=== PATIENT | female | born 1970 | race Caucasian/White ===

== ENCOUNTER 2019-08-22 11:05 | Observation (INO) | payer MEDICAID ==
[2019-08-22] MEDS ORDERED: Sodium Chloride 0.9% 1,000 ML IV ONE (11:16)
[2019-08-22] MEDS ORDERED: Ondansetron 4 MG/2 ML SDV IVPUSH ONE (11:21)
--- NOTE | 2019-08-22 11:23 | EDM.PDOC ---
ED HPI GENERAL MEDICAL PROBLEM - General Chief Complaint: Abdominal Pain Stated Complaint: ABDOMINAL PAIN,VOMITTING Time Seen by Provider: 08/22/19 11:15 - History of Present Illness INITIAL COMMENTS - FREE TEXT/NARRATIVE: HISTORY AND PHYSICAL: History of present illness: Patient is a 49-year-old white female with history of pancreatitis who presents with concern of acute abdominal pain she states she's had flareups like this over the years and the etiology of her pancreatitis remains unclear she has had prior cholecystectomy she states she does drink nightly but this is restricted to one drink at all, was not thought to be one of the contributing factors for her pancreatitis. She denies fever chills chest pain or shortness of breath Review of systems: As per history of present illness and below otherwise all systems reviewed and negative. Past medical history: As per history of present illness and as reviewed below otherwise noncontributory. Surgical history: As per history of present illness and as reviewed below otherwise noncontributory. Social history: No reported history of drug or alcohol abuse. Family history: As per history of present illness and as reviewed below otherwise noncontributory. Physical exam: HEENT: Atraumatic, normocephalic, pupils reactive, negative for conjunctival pallor or scleral icterus, mucous membranes moist, throat clear, neck supple, nontender, trachea midline. Lungs: Clear to auscultation, breath sounds equal bilaterally, chest nontender. Heart: S1S2, regular, negative for clicks, rubs, or JVD. Abdomen: Soft, nondistended, tenderness across upper abdomen. Negative for masses or hepatosplenomegaly. Negative for costovertebral tenderness. Pelvis: Stable nontender. Genitourinary: Deferred. Rectal: Deferred. Extremities: Atraumatic, negative for cords or calf pain. Neurovascular unremarkable. Neuro: Awake, alert, oriented. Cranial nerves II through XII unremarkable. Cerebellum unremarkable. Motor and sensory unremarkable throughout. Exam nonfocal. Diagnostics: CBC CMP lipase EKG chest x-ray CT abdomen and pelvis UA urine drug screen PT/INR Therapeutics: Saline 1 L bolus Zofran 4 mg IV Impression: On acute abdominal pain #2 history of pancreatitis Definitive disposition and diagnosis as appropriate pending reevaluation and review of above. - Related Data Allergies Allergy/AdvReac Type Severity Reaction Status Date / Time acetaminophen Allergy Anaphylactic Verified 08/22/19 11:25 [From Darvocet-N] Shock azithromycin Allergy Anaphylactic Verified 08/22/19 11:25 Shock meperidine [From Demerol] Allergy Hives Verified 08/22/19 11:25 metoclopramide [From Reglan] Allergy Anaphylactic Verified 08/22/19 11:25 Shock morphine Allergy Anaphylactic Verified 08/22/19 11:25 Shock NSAIDS (Non-Steroidal Allergy Stomach Verified 08/22/19 11:25 Anti-Inflamma Upset ondansetron [From Zofran] Allergy Anaphylactic Verified 08/22/19 11:25 Shock prochlorperazine Allergy Anaphylactic Verified 08/22/19 11:25 [From Compazine] Shock propoxyphene Allergy Anaphylactic Verified 08/22/19 11:25 [From Darvocet-N] Shock Home Meds: Home Meds Multivitamin [Multi-Day Vitamins] 08/22/19 [History] Omeprazole 08/22/19 [History] Zinc Gluconate-Zinc Picolinate [Zinc] 08/22/19 [History] ED ROS GENERAL - Review of Systems Review Of Systems: Comprehensive ROS is negative, except as noted in HPI. ED EXAM, GENERAL - Physical Exam Exam: See Below (See dictation) Course - Vital Signs Last Recorded V/S: Last Vital Signs Temp 36.3 C 08/22/19 11:26 Pulse 84 08/22/19 11:26 Resp 18 08/22/19 11:26 BP 151/78 H 08/22/19 11:26 Pulse Ox 100 08/22/19 11:26 - Orders/Labs/Meds Orders: Active Orders 24 hr Category Date Time Status EKG Documentation Completion [RC] STAT Care 08/22/19 11:16 Active Labs: Laboratory Tests 08/22/19 08/22/19 08/22/19 Range/Units 11:35 11:35 11:35 WBC 5.82 (4.0-11.0) K/uL RBC 4.54 (4.30-5.90) M/uL Hgb 13.6 (12.0-16.0) g/dL Hct 40.9 (36.0-46.0) % MCV 90.1 (80.0-98.0) fL MCH 30.0 (27.0-32.0) pg MCHC 33.3 (31.0-37.0) g/dL RDW Std Deviation 43.6 (28.0-62.0) fl RDW Coeff of Brenda 13 (11.0-15.0) % Plt Count 276 (150-400) K/uL MPV 9.20 (7.40-12.00) fL Neut % (Auto) 61.6 (48.0-80.0) % Lymph % (Auto) 29.9 (16.0-40.0) % [place] % (Auto) 7.7 (0.0-15.0) % Eos % (Auto) 0.5 (0.0-7.0) % Baso % (Auto) 0.3 (0.0-1.5) % Neut # (Auto) 3.6 (1.4-5.7) K/uL Lymph # (Auto) 1.7 (0.6-2.4) K/uL [place] # (Auto) 0.5 (0.0-0.8) K/uL Eos # (Auto) 0.0 (0.0-0.7) K/uL Baso # (Auto) 0.0 (0.0-0.1) K/uL Nucleated RBC % 0.0 /100WBC Nucleated RBCs # 0 K/uL INR 0.97 Sodium (136-145) mmol/L Potassium (3.5-5.1) mmol/L Chloride (98-107) mmol/L Carbon Dioxide (21.0-32.0) mmol/L BUN (7.0-18.0) mg/dL Creatinine (0.6-1.0) mg/dL Est Cr Clr Drug Dosing Estimated GFR (MDRD) ml/min Glucose (74-106) mg/dL Calcium (8.5-10.1) mg/dL Total Bilirubin (0.2-1.0) mg/dL AST (15-37) IU/L ALT (14-63) IU/L Alkaline Phosphatase (46-116) U/L Total Protein (6.4-8.2) g/dL Albumin (3.4-5.0) g/dL Globulin (2.6-4.0) g/dL Albumin/Globulin Ratio (0.9-1.6) Lipase (73-393) U/L HCG, Qual (NEG) Urine Color YELLOW Urine Appearance CLEAR Urine pH 6.0 (5.0-8.0) Ur Specific [place] 1.020 (1.001-1.035) Urine Protein NEGATIVE (NEGATIVE) mg/dL Urine Glucose (UA) NEGATIVE (NEGATIVE) mg/dL Urine Ketones NEGATIVE (NEGATIVE) mg/dL Urine Occult Blood TRACE-INTACT H (NEGATIVE) Urine Nitrite NEGATIVE (NEGATIVE) Urine Bilirubin NEGATIVE (NEGATIVE) Urine Urobilinogen 0.2 (<2.0) EU/dL Ur Leukocyte Esterase NEGATIVE (NEGATIVE) Urine RBC 0-2 (0-2/HPF) Urine WBC 0-1 (0-5/HPF) Ur Squamous Epith Cells NOT SEEN Urine Bacteria NOT SEEN (NEGATIVE) Urine Opiates Screen (NEGATIVE) Ur Oxycodone Screen (NEGATIVE) Urine Methadone Screen (NEGATIVE) Ur Barbiturates Screen (NEGATIVE) Ur Phencyclidine Scrn (NEGATIVE) Ur Amphetamine Screen (NEGATIVE) U Methamphetamines Scrn (NEGATIVE) U Benzodiazepines Scrn (NEGATIVE) U Cocaine Metab Screen (NEGATIVE) U Marijuana (THC) Screen (NEGATIVE) Ethyl Alcohol mg/dL 08/22/19 08/22/19 08/22/19 Range/Units 11:35 11:35 11:35 WBC (4.0-11.0) K/uL RBC (4.30-5.90) M/uL Hgb (12.0-16.0) g/dL Hct (36.0-46.0) % MCV (80.0-98.0) fL MCH (27.0-32.0) pg MCHC (31.0-37.0) g/dL RDW Std Deviation (28.0-62.0) fl RDW Coeff of Brenda (11.0-15.0) % Plt Count (150-400) K/uL MPV (7.40-12.00) fL Neut % (Auto) (48.0-80.0) % Lymph % (Auto) (16.0-40.0) % [place] % (Auto) (0.0-15.0) % Eos % (Auto) (0.0-7.0) % Baso % (Auto) (0.0-1.5) % Neut # (Auto) (1.4-5.7) K/uL Lymph # (Auto) (0.6-2.4) K/uL [place] # (Auto) (0.0-0.8) K/uL Eos # (Auto) (0.0-0.7) K/uL Baso # (Auto) (0.0-0.1) K/uL Nucleated RBC % /100WBC Nucleated RBCs # K/uL INR Sodium 139 (136-145) mmol/L Potassium 4.3 (3.5-5.1) mmol/L Chloride 105 (98-107) mmol/L Carbon Dioxide 24.5 (21.0-32.0) mmol/L BUN 16 (7.0-18.0) mg/dL Creatinine 0.8 (0.6-1.0) mg/dL Est Cr Clr Drug Dosing TNP Estimated GFR (MDRD) > 60.0 ml/min Glucose 96 (74-106) mg/dL Calcium 8.9 (8.5-10.1) mg/dL Total Bilirubin 0.4 (0.2-1.0) mg/dL AST 20 (15-37) IU/L ALT 27 (14-63) IU/L Alkaline Phosphatase 79 (46-116) U/L Total Protein 7.8 (6.4-8.2) g/dL Albumin 4.1 (3.4-5.0) g/dL Globulin 3.7 (2.6-4.0) g/dL Albumin/Globulin Ratio 1.1 (0.9-1.6) Lipase 205 (73-393) U/L HCG, Qual NEGATIVE (NEG) Urine Color Urine Appearance Urine pH (5.0-8.0) Ur Specific [place] (1.001-1.035) Urine Protein (NEGATIVE) mg/dL Urine Glucose (UA) (NEGATIVE) mg/dL Urine Ketones (NEGATIVE) mg/dL Urine Occult Blood (NEGATIVE) Urine Nitrite (NEGATIVE) Urine Bilirubin (NEGATIVE) Urine Urobilinogen (<2.0) EU/dL Ur Leukocyte Esterase (NEGATIVE) Urine RBC (0-2/HPF) Urine WBC (0-5/HPF) Ur Squamous Epith Cells Urine Bacteria (NEGATIVE) Urine Opiates Screen NEGATIVE (NEGATIVE) Ur Oxycodone Screen NEGATIVE (NEGATIVE) Urine Methadone Screen NEGATIVE (NEGATIVE) Ur Barbiturates Screen NEGATIVE (NEGATIVE) Ur Phencyclidine Scrn NEGATIVE (NEGATIVE) Ur Amphetamine Screen NEGATIVE (NEGATIVE) U Methamphetamines Scrn NEGATIVE (NEGATIVE) U Benzodiazepines Scrn NEGATIVE (NEGATIVE) U Cocaine Metab Screen NEGATIVE (NEGATIVE) U Marijuana (THC) Screen POSITIVE (NEGATIVE) Ethyl Alcohol <3 mg/dL Meds: Medications Discontinued Medications Generic Name Dose Route Start Last Admin Trade Name Claudioq PRN Reason Stop Dose Admin Sodium Chloride 1,000 mls @ 999 mls/hr 08/22/19 11:16 08/22/19 11:53 Normal Saline IV 08/22/19 12:16 999 mls/hr STAT ONE Administration Ondansetron HCl 4 mg 08/22/19 11:21 08/22/19 12:26 Zofran IVPUSH 08/22/19 11:22 Not Given ONETIME ONE Promethazine HCl 25 mg 08/22/19 11:55 08/22/19 12:27 Phenergan IM 08/22/19 11:56 25 mg ONETIME ONE Administration Departure - Departure Time of Disposition: 13:43 Disposition: Refer to Observation Condition: Good Clinical Impression: Abdominal pain - Discharge Information Referrals: PCP,None [Primary Care Provider] - Forms: ED Department Discharge - My Orders Last 24 Hours: My Active Orders 08/22/19 11:16 EKG Documentation Completion [RC] STAT - Assessment/Plan Last 24 Hours: My Active Orders 08/22/19 11:16 EKG Documentation Completion [RC] STAT
[2019-08-22] MEDS ORDERED: Promethazine 25 MG/ML SDV IM ONE (11:55)
[2019-08-22 12:10] LABS: BLOOD UREA NITROGEN,BUN 16 mg/dL (7.0-18.0); CARBON DIOXIDE,CO2 24.5 mmol/L (21.0-32.0); CHLORIDE,CL 105 mmol/L (98-107); GLUCOSE RANDOM 96 mg/dL (74-106); LIPASE 205 U/L (73-393); POTASSIUM,K 4.3 mmol/L (3.5-5.1); SODIUM,NA 139 mmol/L (136-145)
--- NOTE | 2019-08-22 12:46 | CT ---
INDICATION: Abdominal pain. TECHNIQUE: Noncontrast CT scan of the abdomen and pelvis. FINDINGS: The lung bases are unremarkable. No focal abnormalities identified in the visualized portions of the liver, spleen, pancreas, adrenal glands, and kidneys. No hydronephrosis. No uroliths. The GI tract is incompletely distended but shows no gross abnormalities. The stomach and GE junction are not well assessed. No retroperitoneal, pelvic sidewall, or mesenteric adenopathy. Atherosclerotic vascular calcifications. Stabilization hardware in the lower lumbar spine. Osteopenia. IMPRESSION: 1. No acute abnormalities of the abdomen or pelvis identified. Dictated by David Varela MD @ 08/22/2019 12:44:51 PM Please note that all CT scans at this facility use dose modulation, iterative reconstruction, and/or weight-based dosing when appropriate to reduce radiation dose to as low as reasonably achievable. Dictated by: David Varela MD @ 08/22/2019 12:45:01 (Electronically Signed)
--- NOTE | 2019-08-22 12:51 | CR ---
INDICATION: Vomiting, abdominal pain, cough. TECHNIQUE: Chest 1 view. COMPARISON: None FINDINGS: The heart size and central vascular pattern are within the normal range. The lungs are clear of acute appearing infiltrates. No pleural effusion is evident. Mild biapical pleural thickening is present. IMPRESSION: No acute cardiopulmonary disease is evident. Dictated by Alen Nieves MD @ Aug 22 2019 12:46PM Signed by Dr. Alen Nieves @ Aug 22 2019 12:48PM
--- NOTE | 2019-08-22 15:03 | PCM.HP.2 ---
H&P History of Present Illness - General Date of Service: 08/22/19 Admit Problem/Dx: Admission Diagnosis/Problem Admission Diagnosis/Problem Abdominal pain Source of Information: Patient - History of Present Illness Initial Comments - Free Text/Narative: Patient is a 49-year-old white female with reported history of pancreatitis who presents with concern of acute abdominal pain she statesshe often has these flare up and etiology of her pancreatitis remains unclear. Patient has h/o of cholecystectomy she states she does drink nightly. She denies fever chills chest pain or shortness of breath. Drinks 1 drink daily. Work up in the ER was negative including negative CT abdomen and normal Lab work. Patient was still experiencing abdominal pain so was admitted for further evaluation. . Onset of Symptoms: Reports: Today, Sudden Duration of Symptoms: Reports: Hour(s): Quality: Reports: Pressure Improves with: Reports: None Worsens with: Reports: None abd Pain Score (Numeric/FACES): 8 - Related Data Allergies/Adverse Reactions: Allergies Allergy/AdvReac Type Severity Reaction Status Date / Time azithromycin Allergy Vomiting Verified 08/22/19 16:08 haloperidol Allergy Anaphylactic Verified 08/22/19 16:12 Shock meperidine [From Demerol] Allergy headaches Verified 08/22/19 16:08 metoclopramide [From Reglan] Allergy Anaphylactic Verified 08/22/19 16:09 Shock morphine Allergy Hives Verified 08/22/19 16:09 NSAIDS (Non-Steroidal Allergy Stomach Verified 08/22/19 16:09 Anti-Inflamma Upset ondansetron [From Zofran] Allergy Hives Verified 08/22/19 16:09 phenazopyridine Allergy Vomiting Verified 08/22/19 16:12 [From Pyridium] prochlorperazine Allergy Anaphylactic Verified 08/22/19 16:09 [From Compazine] Shock propoxyphene Allergy Swelling Verified 08/22/19 16:10 [From Darvocet-N] Home Medications: Home Meds Multivitamin [Multi-Day Vitamins] 1 tab PO DAILY 08/22/19 [History] Omeprazole 20 mg PO DAILY 08/22/19 [History] Zinc Gluconate-Zinc Picolinate [Zinc] 1 tab PO DAILY 08/22/19 [History] H&P Review of Systems - Review of Systems: General: Denies: Fever, Chills Pulmonary: Denies: Shortness of Breath, Wheezing Cardiovascular: Denies: Chest Pain, Palpitations Gastrointestinal: Reports: Abdominal Pain, Anorexia, Decreased Appetite. Denies : Black Stool, Bloody Stool, Constipation, Diarrhea, Distension, Hematemesis, Hematochezia, Stool Incontinence Genitourinary: Denies: Dysuria, Frequency Musculoskeletal: Denies: Neck Pain, Shoulder Pain Skin: Denies: Cyanosis, Jaundice, Mottled Psychiatric: Denies: Confusion, Depression, Mood Lability Neurological: Denies: Confusion, Dizziness, Headache Hematologic/Lymphatic: Denies: Anemia, Easy Bleeding Exam - Exam Exam: See Below - Vital Signs Vital Signs: Last Vital Signs Temp 36.3 C 08/22/19 11:26 Pulse 72 08/22/19 13:30 Resp 18 08/22/19 13:30 BP 135/76 08/22/19 13:30 Pulse Ox 98 08/22/19 13:30 - Exam General: Alert, Oriented Neck: Supple Lungs: Clear to Auscultation Cardiovascular: Regular Rate, Regular Rhythm GI/Abdominal Exam: Normal Bowel Sounds, Soft, Non-Tender Extremities: Normal Inspection, Normal Range of Motion Peripheral Pulses: 3+: Dorsalis Pedis (L), Dorsalis Pedis (R) - Patient Data Lab Results Last 24 hrs: Laboratory Results - last 24 hr 08/22/19 08/22/19 08/22/19 Range/Units 11:35 11:35 11:35 WBC 5.82 (4.0-11.0) K/uL RBC 4.54 (4.30-5.90) M/uL Hgb 13.6 (12.0-16.0) g/dL Hct 40.9 (36.0-46.0) % MCV 90.1 (80.0-98.0) fL MCH 30.0 (27.0-32.0) pg MCHC 33.3 (31.0-37.0) g/dL RDW Std Deviation 43.6 (28.0-62.0) fl RDW Coeff of Brenda 13 (11.0-15.0) % Plt Count 276 (150-400) K/uL MPV 9.20 (7.40-12.00) fL Neut % (Auto) 61.6 (48.0-80.0) % Lymph % (Auto) 29.9 (16.0-40.0) % [place] % (Auto) 7.7 (0.0-15.0) % Eos % (Auto) 0.5 (0.0-7.0) % Baso % (Auto) 0.3 (0.0-1.5) % Neut # (Auto) 3.6 (1.4-5.7) K/uL Lymph # (Auto) 1.7 (0.6-2.4) K/uL [place] # (Auto) 0.5 (0.0-0.8) K/uL Eos # (Auto) 0.0 (0.0-0.7) K/uL Baso # (Auto) 0.0 (0.0-0.1) K/uL Nucleated RBC % 0.0 /100WBC Nucleated RBCs # 0 K/uL INR 0.97 Sodium (136-145) mmol/L Potassium (3.5-5.1) mmol/L Chloride (98-107) mmol/L Carbon Dioxide (21.0-32.0) mmol/L BUN (7.0-18.0) mg/dL Creatinine (0.6-1.0) mg/dL Est Cr Clr Drug Dosing Estimated GFR (MDRD) ml/min Glucose (74-106) mg/dL Calcium (8.5-10.1) mg/dL Total Bilirubin (0.2-1.0) mg/dL AST (15-37) IU/L ALT (14-63) IU/L Alkaline Phosphatase (46-116) U/L Total Protein (6.4-8.2) g/dL Albumin (3.4-5.0) g/dL Globulin (2.6-4.0) g/dL Albumin/Globulin Ratio (0.9-1.6) Lipase (73-393) U/L HCG, Qual (NEG) Urine Color YELLOW Urine Appearance CLEAR Urine pH 6.0 (5.0-8.0) Ur Specific [place] 1.020 (1.001-1.035) Urine Protein NEGATIVE (NEGATIVE) mg/dL Urine Glucose (UA) NEGATIVE (NEGATIVE) mg/dL Urine Ketones NEGATIVE (NEGATIVE) mg/dL Urine Occult Blood TRACE-INTACT H (NEGATIVE) Urine Nitrite NEGATIVE (NEGATIVE) Urine Bilirubin NEGATIVE (NEGATIVE) Urine Urobilinogen 0.2 (<2.0) EU/dL Ur Leukocyte Esterase NEGATIVE (NEGATIVE) Urine RBC 0-2 (0-2/HPF) Urine WBC 0-1 (0-5/HPF) Ur Squamous Epith Cells NOT SEEN Urine Bacteria NOT SEEN (NEGATIVE) Urine Opiates Screen (NEGATIVE) Ur Oxycodone Screen (NEGATIVE) Urine Methadone Screen (NEGATIVE) Ur Barbiturates Screen (NEGATIVE) Ur Phencyclidine Scrn (NEGATIVE) Ur Amphetamine Screen (NEGATIVE) U Methamphetamines Scrn (NEGATIVE) U Benzodiazepines Scrn (NEGATIVE) U Cocaine Metab Screen (NEGATIVE) U Marijuana (THC) Screen (NEGATIVE) Ethyl Alcohol mg/dL 08/22/19 08/22/19 08/22/19 Range/Units 11:35 11:35 11:35 WBC (4.0-11.0) K/uL RBC (4.30-5.90) M/uL Hgb (12.0-16.0) g/dL Hct (36.0-46.0) % MCV (80.0-98.0) fL MCH (27.0-32.0) pg MCHC (31.0-37.0) g/dL RDW Std Deviation (28.0-62.0) fl RDW Coeff of Brenda (11.0-15.0) % Plt Count (150-400) K/uL MPV (7.40-12.00) fL Neut % (Auto) (48.0-80.0) % Lymph % (Auto) (16.0-40.0) % [place] % (Auto) (0.0-15.0) % Eos % (Auto) (0.0-7.0) % Baso % (Auto) (0.0-1.5) % Neut # (Auto) (1.4-5.7) K/uL Lymph # (Auto) (0.6-2.4) K/uL [place] # (Auto) (0.0-0.8) K/uL Eos # (Auto) (0.0-0.7) K/uL Baso # (Auto) (0.0-0.1) K/uL Nucleated RBC % /100WBC Nucleated RBCs # K/uL INR Sodium 139 (136-145) mmol/L Potassium 4.3 (3.5-5.1) mmol/L Chloride 105 (98-107) mmol/L Carbon Dioxide 24.5 (21.0-32.0) mmol/L BUN 16 (7.0-18.0) mg/dL Creatinine 0.8 (0.6-1.0) mg/dL Est Cr Clr Drug Dosing TNP Estimated GFR (MDRD) > 60.0 ml/min Glucose 96 (74-106) mg/dL Calcium 8.9 (8.5-10.1) mg/dL Total Bilirubin 0.4 (0.2-1.0) mg/dL AST 20 (15-37) IU/L ALT 27 (14-63) IU/L Alkaline Phosphatase 79 (46-116) U/L Total Protein 7.8 (6.4-8.2) g/dL Albumin 4.1 (3.4-5.0) g/dL Globulin 3.7 (2.6-4.0) g/dL Albumin/Globulin Ratio 1.1 (0.9-1.6) Lipase 205 (73-393) U/L HCG, Qual NEGATIVE (NEG) Urine Color Urine Appearance Urine pH (5.0-8.0) Ur Specific [place] (1.001-1.035) Urine Protein (NEGATIVE) mg/dL Urine Glucose (UA) (NEGATIVE) mg/dL Urine Ketones (NEGATIVE) mg/dL Urine Occult Blood (NEGATIVE) Urine Nitrite (NEGATIVE) Urine Bilirubin (NEGATIVE) Urine Urobilinogen (<2.0) EU/dL Ur Leukocyte Esterase (NEGATIVE) Urine RBC (0-2/HPF) Urine WBC (0-5/HPF) Ur Squamous Epith Cells Urine Bacteria (NEGATIVE) Urine Opiates Screen NEGATIVE (NEGATIVE) Ur Oxycodone Screen NEGATIVE (NEGATIVE) Urine Methadone Screen NEGATIVE (NEGATIVE) Ur Barbiturates Screen NEGATIVE (NEGATIVE) Ur Phencyclidine Scrn NEGATIVE (NEGATIVE) Ur Amphetamine Screen NEGATIVE (NEGATIVE) U Methamphetamines Scrn NEGATIVE (NEGATIVE) U Benzodiazepines Scrn NEGATIVE (NEGATIVE) U Cocaine Metab Screen NEGATIVE (NEGATIVE) U Marijuana (THC) Screen POSITIVE (NEGATIVE) Ethyl Alcohol <3 mg/dL Result Diagrams: 08/22/19 11:35 08/22/19 11:35 - Problem List (1) Abdominal pain SNOMED Code(s): 15053380 ICD Code: R10.9 - UNSPECIFIED ABDOMINAL PAIN Status: Acute Current Visit : Yes Problem List Initiated/Reviewed/Updated: Yes Orders Last 24hrs: Active Orders 24 hr Category Date Time Status Patient Status [ADT] Stat ADT 08/22/19 13:49 Active EKG Documentation Completion [RC] STAT Care 08/22/19 11:16 Active Assessment/Plan Comment:: 49 y/o F came in with abdominal pain, Work up done in ER was negative including Negative CT scan abdomen, normal labs Patient states she would like to stay overnight as she is still experiencing abdominal pain Could be Gastritis Will keep NPO start IVF Tylenol for pain Avoid Opioids IV PPI Maalox as needed
[2019-08-22] MEDS ORDERED: Ketorolac 30 MG/ML SDV IV PRN (15:27)
[2019-08-22] MEDS ORDERED: Pantoprazole 40 MG Vial IV SCH (15:30)
[2019-08-22] MEDS ORDERED: Aluminum Hydroxide/Magnesium Hydroxide/Simethicone Susp 30 ML Cup PO PRN (15:30)
[2019-08-22] MEDS ORDERED: Pantoprazole 40 MG in Sodium Chloride 0.9% 10 ML IV SCH (15:45)
[2019-08-22] MEDS: Heparin Sodium 5,000 Units/ML Vial SUBCUT SCH ×2 (16:24→23:16)
[2019-08-22] MEDS: Pantoprazole 40 MG in Sodium Chloride 0.9% 10 ML IV SCH ×2 (16:24→18:42)
[2019-08-22] MEDS ORDERED: FLU Vacc QS2019-20(6MOS+)/PF 60 MCG/0.5 ML SYRINGE IM ONE (18:30)
[2019-08-22] MEDS: Acetaminophen 325 MG/10.15 ML ML PO PRN (18:49)
[2019-08-22] MEDS: Sodium Chloride 0.9% 1,000 ML IV SCH (19:27)
[2019-08-22] MEDS: Promethazine 25 MG/ML SDV IM PRN ×2 (19:32→19:36)
[2019-08-22] MEDS ORDERED: HYDROmorphone 1 MG/ML Syringe IVPUSH ONE (23:01)
[2019-08-23] MEDS: Sodium Chloride 0.9% 1,000 ML IV SCH (03:02)
[2019-08-23] MEDS: Acetaminophen 325 MG/10.15 ML ML PO PRN ×2 (03:18→08:54)
[2019-08-23] MEDS: Promethazine 25 MG/ML SDV IM PRN ×2 (03:22→08:58)
[2019-08-23 06:31] LABS: BLOOD UREA NITROGEN,BUN 20 mg/dL (7.0-18.0); CARBON DIOXIDE,CO2 23.1 mmol/L (21.0-32.0); CHLORIDE,CL 111 mmol/L (98-107); GLUCOSE RANDOM 90 mg/dL (74-106); POTASSIUM,K 4.1 mmol/L (3.5-5.1); SODIUM,NA 144 mmol/L (136-145)
[2019-08-23] MEDS: Heparin Sodium 5,000 Units/ML Vial SUBCUT SCH (06:50)
[2019-08-23] MEDS: Pantoprazole 40 MG in Sodium Chloride 0.9% 10 ML IV SCH (08:42)
[2019-08-23] MEDS ORDERED: HYDROmorphone 2 MG Tab PO ONE (10:51)
--- NOTE | 2019-08-23 13:26 | PCM.DCSUM1 ---
<Cesar Munson - Last Filed: 08/23/19 13:22> Discharge Summary - Hospital Course Free Text/Narrative:: 49-year-old female admitted for abdominal pain. She has a PMH of pancreatitis and alcohol abuse. She reports history abdominal pain secondary to pancreatitis and has been experiencing flare-up in pain on and off for the past few years. CT abdomen was negative. CXR, CBC, CMP and lipase level were all unremarkable. Patient was made NPO, started on IV fluids, IV PPI and given PO Dilaudid for pain. Patient was discharged in stable condition and advised to follow-up with new vehicle sales consultant and establish care with PCP. She was discharged on a short- term course of Dilaudid 1 mg TID prn pain for 3 days. - Discharge Data Discharge Date: 08/23/19 Discharge Disposition: Home, Self-Care 01 Condition: Stable - Referral to Home Health Primary Care Physician: PCP None - Patient Instructions Diet: Usual Diet as Tolerated Activity: As Tolerated Notify Provider of: Fever, Increased Pain, Swelling and Redness, Drainage, Nausea and/or Vomiting - Discharge Plan *PRESCRIPTION DRUG MONITORING PROGRAM REVIEWED*: Not Applicable *COPY OF PRESCRIPTION DRUG MONITORING REPORT IN PATIENT DAVON: Not Applicable Prescriptions/Med Rec: HYDROmorphone [Dilaudid] 1 mg PO Q8H PRN 3 Days #5 tab PRN Reason: Pain Home Medications: Home Meds Multivitamin [Multi-Day Vitamins] 1 tab PO DAILY 08/22/19 [History] Omeprazole 20 mg PO DAILY 08/22/19 [History] Zinc Gluconate-Zinc Picolinate [Zinc] 1 tab PO DAILY 08/22/19 [History] HYDROmorphone [Dilaudid] 1 mg PO Q8H PRN 3 Days #5 tab 08/23/19 [Rx] Patient Handouts: Abdominal Pain, Adult, [id number], Hydromorphone tablets Referrals: [facility] [Outside] Nohemi Mcbride MD [Ordering Only Provider] - 09/07/19 2:40 pm Cesar Munson MD [Resident] - 08/31/19 2:00 pm - Discharge Summary/Plan Comment DC Time >30 min.: No - Patient Data Vitals - Most Recent: Last Vital Signs Temp 97.3 F 08/23/19 07:10 Pulse 68 08/23/19 07:10 Resp 16 08/23/19 07:10 BP 95/46 L 08/23/19 07:10 Pulse Ox 100 08/23/19 07:10 Weight - Most Recent: 74.4 kg I&O - Last 24 hours: Intake & Output 08/22/19 08/23/19 08/23/19 22:59 06:59 14:59 Intake Total 1175 Output Total 700 Balance 475 Lab Results - Last 24 hrs: Laboratory Results - last 24 hr 08/23/19 Range/Units 05:40 Sodium 144 (136-145) mmol/L Potassium 4.1 (3.5-5.1) mmol/L Chloride 111 H (98-107) mmol/L Carbon Dioxide 23.1 (21.0-32.0) mmol/L BUN 20 H (7.0-18.0) mg/dL Creatinine 0.8 (0.6-1.0) mg/dL Est Cr Clr Drug Dosing 87.70 mL/min Estimated GFR (MDRD) > 60.0 ml/min Glucose 90 (74-106) mg/dL Calcium 8.1 L (8.5-10.1) mg/dL Total Bilirubin 0.3 (0.2-1.0) mg/dL AST 20 (15-37) IU/L ALT 22 (14-63) IU/L Alkaline Phosphatase 60 (46-116) U/L Total Protein 6.0 L (6.4-8.2) g/dL Albumin 3.1 L (3.4-5.0) g/dL Globulin 2.9 (2.6-4.0) g/dL Albumin/Globulin Ratio 1.1 (0.9-1.6) Med Orders - Current: Current Medications Acetaminophen (Tylenol) 400 mg PO Q4H PRN PRN Reason: Abdominal Pain Last Admin: 08/23/19 08:54 Dose: 400 mg Al Hydroxide/Mg Hydroxide (Mag-Al Plus) 30 ml PO Q4H PRN PRN Reason: Heartburn Last Admin: 08/22/19 16:24 Dose: 30 ml Heparin Sodium (Porcine) (Heparin Sodium) 5,000 units SUBCUT Q8H IZZY Last Admin: 08/23/19 06:50 Dose: 5,000 units Pantoprazole Sodium 40 mg/ (Sodium Chloride) 10 mls @ 300 mls/hr IV DAILY [facility] Last Admin: 08/23/19 08:42 Dose: 300 mls/hr Sodium Chloride (Normal Saline) 1,000 mls @ 125 mls/hr IV ASDIRECTED [facility] Last Admin: 08/23/19 03:02 Dose: 125 mls/hr Promethazine HCl (Phenergan) 25 mg IM Q6H PRN PRN Reason: nausea/vomiting Last Admin: 08/23/19 08:58 Dose: 25 mg Discontinued Medications Hydromorphone HCl (Dilaudid) 0.5 mg IVPUSH ONETIME ONE Stop: 08/22/19 23:02 Last Admin: 08/22/19 23:17 Dose: 0.5 mg Hydromorphone HCl (Dilaudid) 2 mg PO ONETIME ONE Stop: 08/23/19 10:52 Last Admin: 08/23/19 11:06 Dose: 2 mg Sodium Chloride (Normal Saline) 1,000 mls @ 999 mls/hr IV STAT ONE Stop: 08/22/19 12:16 Last Admin: 08/22/19 11:53 Dose: 999 mls/hr Pantoprazole Sodium 40 mg/ (Sodium Chloride) 10 mls @ 300 mls/hr IV Q24H IZZY Pantoprazole Sodium 40 mg/ (Sodium Chloride) 10 mls @ 300 mls/hr IV DAILY [facility] Influenza Virus Vaccine (Pharmacy To Dose - Influenza Vaccine) 1 each IM ONETIME ONE Stop: 08/22/19 18:13 Influenza Virus Vaccine (Fluzone Quad 4436-0060 Syringe) 60 mcg IM .ONCE ONE Stop: 08/22/19 18:31 Last Admin: 08/23/19 12:10 Dose: 60 mcg Ketorolac Tromethamine (Toradol) 30 mg IV Q6H PRN PRN Reason: Pain (moderate 4-6) Ondansetron HCl (Zofran) 4 mg IVPUSH ONETIME ONE Stop: 08/22/19 11:22 Last Admin: 08/22/19 12:26 Dose: Not Given Pantoprazole Sodium (Protonix Iv) 40 mg IV DAILY [facility] Last Admin: 08/22/19 17:03 Dose: Not Given Promethazine HCl (Phenergan) 25 mg IM ONETIME ONE Stop: 08/22/19 11:56 Last Admin: 08/22/19 12:27 Dose: 25 mg <Rory Andrews - Last Filed: 08/24/19 11:54> Discharge Summary - Hospital Course HPI Initial Comments: I have seen and evaluated the patient and agree with the residents note unless specified in my note - Referral to Home Health Primary Care Physician: PCP None - Discharge Diagnosis/Problem(s) (1) Abdominal pain SNOMED Code(s): 07116790 ICD Code: R10.9 - UNSPECIFIED ABDOMINAL PAIN Status: Acute - Patient Data Vitals - Most Recent: Last Vital Signs Temp 36.8 C 08/23/19 11:00 Pulse 68 08/23/19 11:00 Resp 16 08/23/19 11:00 BP 110/56 L 08/23/19 11:00 Pulse Ox 98 08/23/19 11:00 Med Orders - Current: Current Medications Discontinued Medications Acetaminophen (Tylenol) 400 mg PO Q4H PRN PRN Reason: Abdominal Pain Last Admin: 08/23/19 08:54 Dose: 400 mg Al Hydroxide/Mg Hydroxide (Mag-Al Plus) 30 ml PO Q4H PRN PRN Reason: Heartburn Last Admin: 08/22/19 16:24 Dose: 30 ml Heparin Sodium (Porcine) (Heparin Sodium) 5,000 units SUBCUT Q8H IZZY Last Admin: 08/23/19 06:50 Dose: 5,000 units Hydromorphone HCl (Dilaudid) 0.5 mg IVPUSH ONETIME ONE Stop: 08/22/19 23:02 Last Admin: 08/22/19 23:17 Dose: 0.5 mg Hydromorphone HCl (Dilaudid) 2 mg PO ONETIME ONE Stop: 08/23/19 10:52 Last Admin: 08/23/19 11:06 Dose: 2 mg Sodium Chloride (Normal Saline) 1,000 mls @ 999 mls/hr IV STAT ONE Stop: 08/22/19 12:16 Last Admin: 08/22/19 11:53 Dose: 999 mls/hr Pantoprazole Sodium 40 mg/ (Sodium Chloride) 10 mls @ 300 mls/hr IV Q24H IZZY Pantoprazole Sodium 40 mg/ (Sodium Chloride) 10 mls @ 300 mls/hr IV DAILY IZZY Pantoprazole Sodium 40 mg/ (Sodium Chloride) 10 mls @ 300 mls/hr IV DAILY [facility] Last Admin: 08/23/19 08:42 Dose: 300 mls/hr Sodium Chloride (Normal Saline) 1,000 mls @ 125 mls/hr IV ASDIRECTED [facility] Last Admin: 08/23/19 03:02 Dose: 125 mls/hr Influenza Virus Vaccine (Pharmacy To Dose - Influenza Vaccine) 1 each IM ONETIME ONE Stop: 08/22/19 18:13 Influenza Virus Vaccine (Fluzone Quad Syringe) 60 mcg IM .ONCE ONE Stop: 08/22/19 18:31 Last Admin: 08/23/19 12:10 Dose: 60 mcg Ketorolac Tromethamine (Toradol) 30 mg IV Q6H PRN PRN Reason: Pain (moderate 4-6) Ondansetron HCl (Zofran) 4 mg IVPUSH ONETIME ONE Stop: 08/22/19 11:22 Last Admin: 08/22/19 12:26 Dose: Not Given Pantoprazole Sodium (Protonix Iv) 40 mg IV DAILY [facility] Last Admin: 08/22/19 17:03 Dose: Not Given Promethazine HCl (Phenergan) 25 mg IM ONETIME ONE Stop: 08/22/19 11:56 Last Admin: 08/22/19 12:27 Dose: 25 mg Promethazine HCl (Phenergan) 25 mg IM Q6H PRN PRN Reason: nausea/vomiting Last Admin: 08/23/19 08:58 Dose: 25 mg
[2019-08-23] MEDS ORDERED: Pantoprazole 40 MG in Sodium Chloride 0.9% 10 ML IV SCH (15:45)
== END 2019-08-23 13:25 | disposition home or self-care (01) ==
LOC: MW.ED 11:05 → MW.MS 14:12
PROVIDERS: ADMIT Student in an Organized Health Care Education/Training Program; ATTEND Student in an Organized Health Care Education/Training Program
DX: R10.9 Unspecified abdominal pain (principal); Z88.1 Allergy status to other antibiotic agents; Z88.8 Allergy status to other drugs, medicaments and biological substances; Z88.5 Allergy status to narcotic agent; Z88.6 Allergy status to analgesic agent; Z79.899 Other long term (current) drug therapy; Z87.19 Personal history of other diseases of the digestive system; Z23 Encounter for immunization
CPT/HCPCS: 36415; 71045; 74176; 80053; 80305; 80320; 81001; 83690; 84703; 85025; 85610; 90471; 90686; 93005; 96360; 96372; 99285; A9270; C9113; J1170; J1644; J2550; J7040; J7050; 96361; 96374; 96375; 96376; G0008; G0378; G0480; J7030

== ENCOUNTER 2019-09-08 18:36 | Emergency (ER) | payer SELFPAY ==
[2019-09-08] MEDS ORDERED: Sodium Chloride 0.9% 1,000 ML IV ONE (18:39)
[2019-09-08] MEDS ORDERED: LORazepam 2 MG/ML SDV IVPUSH ONE (18:57)
--- NOTE | 2019-09-08 19:13 | EDM.PDOC ---
ED HPI GENERAL MEDICAL PROBLEM - General Chief Complaint: Abdominal Pain Stated Complaint: VOMITING Time Seen by Provider: 09/08/19 18:51 Source of Information: Reports: Patient History Limitations: Reports: No Limitations - History of Present Illness INITIAL COMMENTS - FREE TEXT/NARRATIVE: HISTORY AND PHYSICAL: History of present illness: Patient is a 49-year-old female who presents to the emergency room with complaints of right upper quadrant pain, nausea and vomiting. Patient states this pain started approximately 3 weeks ago and she was seen in our emergency room on 08/22/2019 and was admitted overnight for pain control. She was informed that finding showed that she had dilatation of the common bile duct but otherwise no answers for her continued pain. She states she did follow-up with a GI specialist at [facility], Dr Mcbride, who has her scheduled for an upper endoscopy, colonoscopy, CT abdomen and pelvis with and without contrast for 09/17/2019. She states she called her primary care provider as she has ran out of her Phenergan with codeine and Gideon. Patient denies any fever, chills, headache, change in vision, syncope or near syncope. Denies any chest pain, back pain, shortness of breath or cough. Denies any diarrhea, constipation or dysuria. Has not noted any blood in urine or stool. Patient has been eating and drinking appropriately. Review of systems: As per history of present illness and below otherwise all systems reviewed and negative. Past medical history: As per history of present illness and as reviewed below otherwise noncontributory. Surgical history: As per history of present illness and as reviewed below otherwise noncontributory. Social history: See social history for further information Family history: As per history of present illness and as reviewed below otherwise noncontributory. Physical exam: General: Well-developed and well-nourished 49-year-old female. Alert and oriented. Nontoxic-appearing and in no acute distress. HEENT: Atraumatic, normocephalic, pupils equal and reactive bilaterally, negative for conjunctival pallor or scleral icterus, mucous membranes moist, neck supple, nontender, trachea midline. No drooling or trismus noted. No meningeal signs. No hot potato voice noted. Lungs: Clear to auscultation, breath sounds equal bilaterally, chest nontender. Heart: S1S2, regular rate and rhythm without overt murmur Abdomen: Soft, nondistended, RUQ tenderness. Negative for masses or hepatosplenomegaly. Negative for costovertebral tenderness. Pelvis: Stable nontender. Skin: Intact, warm, dry. No lesions or rashes noted. Extremities: Atraumatic, moves all extremities per self without difficulty or deficits, negative for cords or calf pain. Neurovascular unremarkable. Neuro: Awake, alert, oriented. Cranial nerves II through XII unremarkable. Cerebellum unremarkable. Motor and sensory unremarkable throughout. Exam nonfocal. Notes: Patient mentions that she is out of her pain medication if she would have had this medication she would not have come to the emergency room. She does mention that she would like imaging done even though she has this scheduled with her specialist on the of this month. As the patient's lab work is normal I am not going to do any imaging at this time. She does have multiple allergies. There is some contradiction in which she states she is allergic to some medications yet she has taken these at home for pain and nausea management. All diagnostics were shared with the patient. Supportive care measures were reviewed and discussed. Voices understanding and is agreeable to plan of care. Denies any further questions or concerns at this time. Diagnostics: CBC, CMP, UA Therapeutics: IV fluid, Ativan Prescription: Phenergan (#6) Tramadol (#15) Impression: Encounter for medication refill Abdominal pain Plan: 1. Please follow-up with Dr. Mcbride, your GI specialist, as you already have arranged. Please contact him sooner if needed. 2. Further medication refills have to be through your primary care provider. 3. Return to the ED as needed and as discussed. Definitive disposition and diagnosis as appropriate pending reevaluation and review of above. RUQ Pain Score (Numeric/FACES): 7 - Related Data Allergies Allergy/AdvReac Type Severity Reaction Status Date / Time azithromycin Allergy Vomiting Verified 09/08/19 18:46 haloperidol Allergy Anaphylactic Verified 1819 18:46 Shock meperidine [From Demerol] Allergy headaches Verified 1819 18:46 metoclopramide [From Reglan] Allergy Anaphylactic Verified 1819 18:46 Shock morphine Allergy Hives Verified 1819 18:46 NSAIDS (Non-Steroidal Allergy Stomach Verified 1819 18:46 Anti-Inflamma Upset ondansetron [From Zofran] Allergy Hives Verified 09/08/19 18:46 phenazopyridine Allergy Vomiting Verified 09/08/19 18:46 [From Pyridium] prochlorperazine Allergy Anaphylactic Verified 09/08/19 18:46 [From Compazine] Shock propoxyphene Allergy Swelling Verified 09/08/19 18:46 [From Darvocet-N] Home Meds: Home Meds Multivitamin [Multi-Day Vitamins] 1 tab PO DAILY 08/22/19 [History] Omeprazole 20 mg PO DAILY 08/22/19 [History] Zinc Gluconate-Zinc Picolinate [Zinc] 1 tab PO DAILY 08/22/19 [History] Past Medical History HEENT History: Reports: Impaired Vision Cardiovascular History: Reports: None Respiratory History: Reports: Other (See Below) 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 Gastrointestinal History: Reports: Pancreatitis Genitourinary History: Reports: None BOILER WASHER History: Reports: Other (See Below) Other BOILER WASHER History: Pt states, "I had my tubes tied and then had them untied" Musculoskeletal History: Reports: None Neurological History: Reports: Concussion, TIA Psychiatric History: Reports: Anxiety, Depression Endocrine/Metabolic History: Reports: None Hematologic History: Reports: None Immunologic History: Reports: None Oncologic (Cancer) History: Reports: None Dermatologic History: Reports: None - Infectious Disease History Infectious Disease History: Reports: Chicken Pox - Past Surgical History Head Surgeries/Procedures: Reports: None HEENT Surgical History: Reports: None Cardiovascular Surgical History: Reports: None Respiratory Surgical History: Reports: None GI Surgical History: Reports: Appendectomy, Cholecystectomy Female Surgical History: Reports: None Endocrine Surgical History: Reports: None Neurological Surgical History: Reports: None Musculoskeletal Surgical History: Reports: Other (See Below) Other Musculoskeletal Surgeries/Procedures:: Back surgery for herniated discs Oncologic Surgical History: Reports: None Dermatological Surgical History: Reports: None Social & Family History - Family History Family Medical History: Noncontributory - Tobacco Use Smoking Status *Q: Current Every Day Smoker Years of Tobacco use: 33 Packs/Tins Daily: 0.4 - Caffeine Use Caffeine Use: Reports: Coffee, Soda - Recreational Drug Use Recreational Drug Use: No ED ROS GENERAL - Review of Systems Review Of Systems: Comprehensive ROS is negative, except as noted in HPI. ED EXAM, GI/ABD - Physical Exam Exam: See Below (See dictation) Course - Vital Signs Last Recorded V/S: Last Vital Signs Temp 97.7 F 09/08/19 18:47 Pulse 90 09/08/19 18:47 Resp 18 09/08/19 18:47 BP 158/82 H 09/08/19 18:47 Pulse Ox 98 09/08/19 18:47 - Orders/Labs/Meds Labs: Laboratory Tests 09/08/19 09/08/19 09/08/19 Range/Units 18:50 18:50 19:50 WBC 5.98 (4.0-11.0) K/uL RBC 4.25 L (4.30-5.90) M/uL Hgb 12.9 (12.0-16.0) g/dL Hct 38.4 (36.0-46.0) % MCV 90.4 (80.0-98.0) fL MCH 30.4 (27.0-32.0) pg MCHC 33.6 (31.0-37.0) g/dL RDW Std Deviation 45.0 (28.0-62.0) fl RDW Coeff of Brenda 14 (11.0-15.0) % Plt Count 319 (150-400) K/uL MPV 9.10 (7.40-12.00) fL Neut % (Auto) 50.6 (48.0-80.0) % Lymph % (Auto) 40.6 H (16.0-40.0) % Sutter % (Auto) 7.9 (0.0-15.0) % Eos % (Auto) 0.7 (0.0-7.0) % Baso % (Auto) 0.2 (0.0-1.5) % Neut # (Auto) 3.0 (1.4-5.7) K/uL Lymph # (Auto) 2.4 (0.6-2.4) K/uL Sutter # (Auto) 0.5 (0.0-0.8) K/uL Eos # (Auto) 0.0 (0.0-0.7) K/uL Baso # (Auto) 0.0 (0.0-0.1) K/uL Nucleated RBC % 0.0 /100WBC Nucleated RBCs # 0 K/uL Sodium 141 (136-145) mmol/L Potassium 4.2 (3.5-5.1) mmol/L Chloride 104 (98-107) mmol/L Carbon Dioxide 26.0 (21.0-32.0) mmol/L BUN 22 H (7.0-18.0) mg/dL Creatinine 0.8 (0.6-1.0) mg/dL Est Cr Clr Drug Dosing 87.70 mL/min Estimated GFR (MDRD) > 60.0 ml/min Glucose 100 (74-106) mg/dL Calcium 9.6 (8.5-10.1) mg/dL Total Bilirubin 0.3 (0.2-1.0) mg/dL AST 17 (15-37) IU/L ALT 29 (14-63) IU/L Alkaline Phosphatase 95 (46-116) U/L Total Protein 7.9 (6.4-8.2) g/dL Albumin 4.2 (3.4-5.0) g/dL Globulin 3.7 (2.6-4.0) g/dL Albumin/Globulin Ratio 1.1 (0.9-1.6) Lipase 227 (73-393) U/L Urine Color YELLOW Urine Appearance CLEAR Urine pH 6.0 (5.0-8.0) Ur Specific [place] 1.025 (1.001-1.035) Urine Protein NEGATIVE (NEGATIVE) mg/dL Urine Glucose (UA) NEGATIVE (NEGATIVE) mg/dL Urine Ketones NEGATIVE (NEGATIVE) mg/dL Urine Occult Blood NEGATIVE (NEGATIVE) Urine Nitrite NEGATIVE (NEGATIVE) Urine Bilirubin NEGATIVE (NEGATIVE) Urine Urobilinogen 0.2 (<2.0) EU/dL Ur Leukocyte Esterase NEGATIVE (NEGATIVE) Meds: Medications Discontinued Medications Generic Name Dose Route Start Last Admin Trade Name Freq PRN Reason Stop Dose Admin Sodium Chloride 1,000 mls @ 999 mls/hr 09/08/19 18:39 09/08/19 18:52 Normal Saline IV 09/08/19 19:39 999 mls/hr STAT ONE Administration Lorazepam 1 mg 09/08/19 18:57 09/08/19 19:07 Ativan IVPUSH 09/08/19 18:58 1 mg ONETIME ONE Administration Departure - Departure Time of Disposition: 20:01 Disposition: Home, Self-Care 01 Clinical Impression: Encounter for medication refill Abdominal pain Qualifiers: Abdominal location: right upper quadrant Qualified Code(s): R10.11 - Right upper quadrant pain - Discharge Information Instructions: Abdominal Pain, Adult, [id number] Referrals: PCP,None [Primary Care Provider] - Forms: ED Department Discharge Additional Instructions: The following information is given to patients seen in the emergency department who are being discharged to home. This information is to outline your options for follow-up care. We provide all patients seen in our emergency department with a follow-up referral. The need for follow-up, as well as the timing and circumstances, are variable depending upon the specifics of your emergency department visit. If you don't have a primary care physician on staff, we will provide you with a referral. We always advise you to contact your personal physician following an emergency department visit to inform them of the circumstance of the visit and for follow-up with them and/or the need for any referrals to a consulting specialist. The emergency department will also refer you to a specialist when appropriate. This referral assures that you have the opportunity for follow-up care with a specialist. All of these measure are taken in an effort to provide you with optimal care, which includes your follow-up. Under all circumstances we always encourage you to contact your private physician who remains a resource for coordinating your care. When calling for follow-up care, please make the office aware that this follow-up is from your recent emergency room visit. If for any reason you are refused follow-up, please contact the [facility] Emergency Department at and asked to speak to the emergency department charge nurse. [facility] [address] [place] [id number] [address] [address] 1. Please follow-up with Dr. Mcbride, your GI specialist, as you already have arranged. Please contact him sooner if needed. 2. Further medication refills have to be through your primary care provider. 3. Return to the ED as needed and as discussed. Sepsis Event Note - Evaluation Sepsis Screening Result: No Definite Risk - Focused Exam Vital Signs: Vital Signs Temp Pulse Resp BP Pulse Ox 09/08/19 18:47 97.7 F 90 18 158/82 H 98 Date Exam was Performed: 09/08/19 Time Exam was Performed: 20:01
[2019-09-08 19:28] LABS: BLOOD UREA NITROGEN,BUN 22 mg/dL (7.0-18.0); CHLORIDE,CL 104 mmol/L (98-107); GLUCOSE RANDOM 100 mg/dL (74-106); LIPASE 227 U/L (73-393); POTASSIUM,K 4.2 mmol/L (3.5-5.1); SODIUM,NA 141 mmol/L (136-145)
== END 2019-09-08 20:10 | disposition home or self-care (01) ==
LOC: MW.ED 18:36
DX: R10.11 Right upper quadrant pain (principal); Z76.0 Encounter for issue of repeat prescription; Z86.73 Personal history of transient ischemic attack (TIA), and cerebral infarction without residual deficits; F17.210 Nicotine dependence, cigarettes, uncomplicated; Z88.1 Allergy status to other antibiotic agents; Z88.8 Allergy status to other drugs, medicaments and biological substances; Z79.899 Other long term (current) drug therapy
CPT/HCPCS: 80053; 81003; 83690; 85025; 96361; 96374; 99284; J2060; J7030

== ENCOUNTER 2019-11-09 16:25 | Emergency (ER) | payer MEDICAID ==
[2019-11-09] MEDS ORDERED: Sodium Chloride 0.9% 1,000 ML IV ONE (20:10)
--- NOTE | 2019-11-09 20:14 | EDM.PDOC ---
ED HPI GENERAL MEDICAL PROBLEM - General Chief Complaint: Abdominal Pain Stated Complaint: ABDOMINAL PAIN Time Seen by Provider: 11/09/19 20:05 Source of Information: Reports: Patient History Limitations: Reports: No Limitations - History of Present Illness INITIAL COMMENTS - FREE TEXT/NARRATIVE: HISTORY AND PHYSICAL: History of present illness: Patient is a 49-year-old female who presents to the emergency room with complaints of epigastric pain that radiates to the right upper quadrant and right flank. She has associated nausea and vomiting. Past medical history of pancreatitis, states this does feel similar- admitted in [place] last month for pancreatitis. Patient denies any fever, chills, headache, change in vision, syncope or near syncope. Denies any chest pain, back pain, shortness of breath or cough. Denies any diarrhea, constipation or dysuria. Has not noted any blood in urine or stool. Patient has been eating and drinking appropriately. Patient has had a cholecystectomy and hysterectomy. Denies any alcohol or drug abuse. Review of systems: As per history of present illness and below otherwise all systems reviewed and negative. Past medical history: As per history of present illness and as reviewed below otherwise noncontributory. Surgical history: As per history of present illness and as reviewed below otherwise noncontributory. Social history: See social history for further information Family history: As per history of present illness and as reviewed below otherwise noncontributory. Physical exam: General: Well developed and well nourished 49-year-old female HEENT: Atraumatic, normocephalic, pupils equal and reactive bilaterally, negative for conjunctival pallor or scleral icterus, mucous membranes moist, TMs normal bilaterally, throat clear, neck supple, nontender, trachea midline. No drooling or trismus noted. No meningeal signs. No hot potato voice noted. Lungs: Clear to auscultation, breath sounds equal bilaterally, chest nontender. Heart: S1S2, regular rate and rhythm without overt murmur Abdomen: Soft, nondistended, nontender. Negative for masses or hepatosplenomegaly. Negative for costovertebral tenderness. Pelvis: Stable nontender. Skin: Intact, warm, dry. No lesions or rashes noted. Extremities: Atraumatic, moves all extremities per self without difficulty or deficits, negative for cords or calf pain. Neurovascular unremarkable. Neuro: Awake, alert, oriented. Cranial nerves II through XII unremarkable. Cerebellum unremarkable. Motor and sensory unremarkable throughout. Exam nonfocal. Notes: Lab work is unremarkable. After sharing lab results with her she states that she has had this abdominal pain chronically and has seen a GI specialist in [place]. GI believes her abdominal pain is from scarring due to previous surgeries. Does have Phenergan available to her at home. She does have multiple medication allergies, I did request that she follow-up with the GI specialist if she needs further pain management. Her vital signs are stable. Supportive care measures were reviewed and discussed. Voices understanding and is agreeable to plan of care. Denies any further questions or concerns at this time. Diagnostics: CBC, CMP, UA Therapeutics: IV fluids Prescription: None Impression: Abdominal Pain Plan: 1. [place] diet, advance as tolerated. Increase your oral fluids. 2. Tylenol as needed for pain. 3. Follow up with general surgeon as we discussed, may need further evaluation/ testing. 4. Return to the ED as needed as discussed. Definitive disposition and diagnosis as appropriate pending reevaluation and review of above. Right Abdominal Pain Score (Numeric/FACES): 8 - Related Data Allergies Allergy/AdvReac Type Severity Reaction Status Date / Time azithromycin Allergy Vomiting Verified 11/09/19 17:36 haloperidol Allergy Anaphylactic Verified 11/09/19 17:36 Shock meperidine [From Demerol] Allergy headaches Verified 11/09/19 17:36 metoclopramide [From Reglan] Allergy Anaphylactic Verified 11/09/19 17:36 Shock morphine Allergy Hives Verified 11/09/19 17:36 NSAIDS (Non-Steroidal Allergy Stomach Verified 11/09/19 17:36 Anti-Inflamma Upset ondansetron [From Zofran] Allergy Hives Verified 11/09/19 17:36 phenazopyridine Allergy Vomiting Verified 11/09/19 17:36 [From Pyridium] prochlorperazine Allergy Anaphylactic Verified 11/09/19 17:36 [From Compazine] Shock propoxyphene Allergy Swelling Verified 11/09/19 17:36 [From Darvocet-N] Home Meds: Home Meds Multivitamin [Multi-Day Vitamins] 1 tab PO DAILY 08/22/19 [History] Omeprazole 20 mg PO DAILY 08/22/19 [History] ClonazePAM [KlonoPIN] 0.5 mg PO BID 11/09/19 [History] Promethazine [Phenergan] 25 mg PO ASDIRECTED 11/09/19 [History] Past Medical History HEENT History: Reports: Impaired Vision Cardiovascular History: Reports: None Respiratory History: Reports: Other (See Below) 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 Gastrointestinal History: Reports: Pancreatitis Genitourinary History: Reports: None PHARMACY INTAKE COORDINATOR History: Reports: Other (See Below) Other PHARMACY INTAKE COORDINATOR History: Pt states, "I had my tubes tied and then had them untied" Musculoskeletal History: Reports: None Neurological History: Reports: Concussion, TIA Psychiatric History: Reports: Anxiety, Depression Endocrine/Metabolic History: Reports: None Hematologic History: Reports: None Immunologic History: Reports: None Oncologic (Cancer) History: Reports: None Dermatologic History: Reports: None - Infectious Disease History Infectious Disease History: Reports: Chicken Pox - Past Surgical History Head Surgeries/Procedures: Reports: None HEENT Surgical History: Reports: None Cardiovascular Surgical History: Reports: None Respiratory Surgical History: Reports: None GI Surgical History: Reports: Appendectomy, Cholecystectomy Female Surgical History: Reports: Hysterectomy Endocrine Surgical History: Reports: None Neurological Surgical History: Reports: None Musculoskeletal Surgical History: Reports: Other (See Below) Other Musculoskeletal Surgeries/Procedures:: Back surgery for herniated discs Oncologic Surgical History: Reports: None Dermatological Surgical History: Reports: None Social & Family History - Family History Family Medical History: Noncontributory - Tobacco Use Smoking Status *Q: Current Every Day Smoker Years of Tobacco use: 33 Packs/Tins Daily: 0.5 - Caffeine Use Caffeine Use: Reports: Coffee, Soda - Recreational Drug Use Recreational Drug Use: No ED ROS GENERAL - Review of Systems Review Of Systems: Comprehensive ROS is negative, except as noted in HPI. ED EXAM, GI/ABD - Physical Exam Exam: See Below (See dictation) Course - Vital Signs Last Recorded V/S: Last Vital Signs Temp 97.2 F 11/09/19 19:50 Pulse 72 11/09/19 19:50 Resp 18 11/09/19 19:50 BP 134/80 11/09/19 19:50 Pulse Ox 95 11/09/19 19:50 - Orders/Labs/Meds Labs: Laboratory Tests 11/09/19 11/09/19 11/09/19 Range/Units 19:52 20:43 20:43 WBC 6.21 (4.0-11.0) K/uL RBC 4.17 L (4.30-5.90) M/uL Hgb 12.6 (12.0-16.0) g/dL Hct 38.2 (36.0-46.0) % MCV 91.6 (80.0-98.0) fL MCH 30.2 (27.0-32.0) pg MCHC 33.0 (31.0-37.0) g/dL RDW Std Deviation 45.7 (28.0-62.0) fl RDW Coeff of Brenda 14 (11.0-15.0) % Plt Count 264 (150-400) K/uL MPV 9.20 (7.40-12.00) fL Neut % (Auto) 60.6 (48.0-80.0) % Lymph % (Auto) 33.3 (16.0-40.0) % [place] % (Auto) 5.3 (0.0-15.0) % Eos % (Auto) 0.6 (0.0-7.0) % Baso % (Auto) 0.2 (0.0-1.5) % Neut # (Auto) 3.8 (1.4-5.7) K/uL Lymph # (Auto) 2.1 (0.6-2.4) K/uL [place] # (Auto) 0.3 (0.0-0.8) K/uL Eos # (Auto) 0.0 (0.0-0.7) K/uL Baso # (Auto) 0.0 (0.0-0.1) K/uL Nucleated RBC % 0.0 /100WBC Nucleated RBCs # 0 K/uL Sodium 143 (136-145) mmol/L Potassium 4.1 (3.5-5.1) mmol/L Chloride 107 (98-107) mmol/L Carbon Dioxide 25.6 (21.0-32.0) mmol/L BUN 22 H (7.0-18.0) mg/dL Creatinine 0.7 (0.6-1.0) mg/dL Est Cr Clr Drug Dosing 103.83 mL/min Estimated GFR (MDRD) > 60.0 ml/min Glucose 95 (74-106) mg/dL Calcium 8.9 (8.5-10.1) mg/dL Total Bilirubin 0.2 (0.2-1.0) mg/dL AST 16 (15-37) IU/L ALT 22 (14-63) IU/L Alkaline Phosphatase 109 (46-116) U/L Total Protein 7.4 (6.4-8.2) g/dL Albumin 3.7 (3.4-5.0) g/dL Globulin 3.7 (2.6-4.0) g/dL Albumin/Globulin Ratio 1.0 (0.9-1.6) Lipase 296 (73-393) U/L Urine Color YELLOW Urine Appearance CLEAR Urine pH 6.0 (5.0-8.0) Ur Specific [place] >= 1.030 (1.001-1.035) Urine Protein NEGATIVE (NEGATIVE) mg/dL Urine Glucose (UA) NEGATIVE (NEGATIVE) mg/dL Urine Ketones NEGATIVE (NEGATIVE) mg/dL Urine Occult Blood NEGATIVE (NEGATIVE) Urine Nitrite NEGATIVE (NEGATIVE) Urine Bilirubin NEGATIVE (NEGATIVE) Urine Urobilinogen 0.2 (<2.0) EU/dL Ur Leukocyte Esterase NEGATIVE (NEGATIVE) Meds: Medications Discontinued Medications Generic Name Dose Route Start Last Admin Trade Name Freq PRN Reason Stop Dose Admin Sodium Chloride 1,000 mls @ 999 mls/hr 11/09/19 20:10 11/09/19 20:20 Normal Saline IV 11/09/19 21:10 999 mls/hr STAT ONE Administration Lorazepam 1 mg 11/09/19 20:47 11/09/19 21:01 Ativan IVPUSH 11/09/19 20:48 1 mg ONETIME ONE Administration Tramadol HCl 50 mg 11/09/19 21:25 Ultram PO 11/09/19 21:26 ONETIME ONE Departure - Departure Time of Disposition: 21:56 Disposition: Home, Self-Care 01 Clinical Impression: Abdominal pain Qualifiers: Abdominal location: right upper quadrant Qualified Code(s): R10.11 - Right upper quadrant pain - Discharge Information Instructions: Abdominal Pain, Adult, [id number] Referrals: Shyam Deleon MD [Primary Care Provider] - Forms: ED Department Discharge Additional Instructions: The following information is given to patients seen in the emergency department who are being discharged to home. This information is to outline your options for follow-up care. We provide all patients seen in our emergency department with a follow-up referral. The need for follow-up, as well as the timing and circumstances, are variable depending upon the specifics of your emergency department visit. If you don't have a primary care physician on staff, we will provide you with a referral. We always advise you to contact your personal physician following an emergency department visit to inform them of the circumstance of the visit and for follow-up with them and/or the need for any referrals to a consulting specialist. The emergency department will also refer you to a specialist when appropriate. This referral assures that you have the opportunity for follow-up care with a specialist. All of these measure are taken in an effort to provide you with optimal care, which includes your follow-up. Under all circumstances we always encourage you to contact your private physician who remains a resource for coordinating your care. When calling for follow-up care, please make the office aware that this follow-up is from your recent emergency room visit. If for any reason you are refused follow-up, please contact the [facility] Emergency Department at and asked to speak to the emergency department charge nurse. [facility] [address] [place] [address] [place] [address] 1. [place] diet, advance as tolerated. Increase your oral fluids. 2. Tylenol as needed for pain. 3. Follow up with general surgeon as we discussed, may need further evaluation/ testing. 4. Return to the ED as needed as discussed. Sepsis Event Note - Evaluation Sepsis Screening Result: No Definite Risk - Focused Exam Vital Signs: Vital Signs Temp Pulse Resp BP Pulse Ox 11/09/19 19:50 97.2 F 72 18 134/80 95 11/09/19 17:38 97.6 F 81 16 119/64 99 Date Exam was Performed: 11/09/19 Time Exam was Performed: 21:55
[2019-11-09] MEDS ORDERED: LORazepam 2 MG/ML SDV IVPUSH ONE (20:47)
[2019-11-09 21:09] LABS: BLOOD UREA NITROGEN,BUN 22 mg/dL (7.0-18.0); CARBON DIOXIDE,CO2 25.6 mmol/L (21.0-32.0); CHLORIDE,CL 107 mmol/L (98-107); GLUCOSE RANDOM 95 mg/dL (74-106); LIPASE 296 U/L (73-393); POTASSIUM,K 4.1 mmol/L (3.5-5.1); SODIUM,NA 143 mmol/L (136-145)
[2019-11-09] MEDS ORDERED: traMADol 50 MG Tab PO ONE (21:25)
== END 2019-11-09 21:54 | disposition home or self-care (01) ==
LOC: MW.ED 16:25
DX: R10.11 Right upper quadrant pain (principal); F41.9 Anxiety disorder, unspecified; F32.9 Major depressive disorder, single episode, unspecified; Z86.73 Personal history of transient ischemic attack (TIA), and cerebral infarction without residual deficits; F17.210 Nicotine dependence, cigarettes, uncomplicated; Z88.8 Allergy status to other drugs, medicaments and biological substances; Z88.1 Allergy status to other antibiotic agents; Z79.899 Other long term (current) drug therapy
CPT/HCPCS: 36415; 80053; 81003; 83690; 85025; 96361; 96374; 99284; J2060; J7030

== ENCOUNTER 2019-11-12 08:51 | Emergency (ER) | payer MEDICAID ==
[2019-11-12] MEDS ORDERED: Sodium Chloride 0.9% 1,000 ML IV ONE ×2 (09:27→10:34)
[2019-11-12] MEDS ORDERED: diphenhydrAMINE 50 MG/ML SDV IVPUSH ONE (09:29)
[2019-11-12] MEDS: Acetaminophen 325 MG Tab PO ONE ×2 (09:42→10:08)
[2019-11-12 10:32] LABS: CARBON DIOXIDE,CO2 24.3 mmol/L (21.0-32.0); CHLORIDE,CL 104 mmol/L (98-107); GLUCOSE RANDOM 93 mg/dL (74-106); POTASSIUM,K 3.7 mmol/L (3.5-5.1); SODIUM,NA 141 mmol/L (136-145)
[2019-11-12 10:33] LABS: BLOOD UREA NITROGEN,BUN 17 mg/dL (7.0-18.0); LIPASE 272 U/L (73-393)
--- NOTE | 2019-11-12 10:35 | CR ---
Chest: 2 views of the chest were obtained. Comparison: Prior chest x-ray of 08/22/19. Heart size and mediastinum are normal. Scarring is noted within the right upper lung as well as mild bilateral apical pleural thickening and pleural calcification. Lungs otherwise are clear. Bony structures appear within normal limits. Impression: 1. Chronic appearing change within both upper lungs which appears stable from prior chest x-ray. 2. Nothing acute is otherwise seen. Diagnostic code #2 This report was dictated in [place] Standard Time
[2019-11-12] MEDS ORDERED: Ondansetron 4 MG/2 ML SDV IVPUSH ONE (11:43)
--- NOTE | 2019-11-12 13:14 | EDM.PDOC ---
ED [facility] GENERAL MEDICAL PROBLEM - General Chief Complaint: Respiratory Problem Stated Complaint: COLD SYMPTOMS Time Seen by Provider: 11/12/19 11:16 Source of Information: Reports: Patient History Limitations: Reports: No Limitations - History of Present Illness INITIAL COMMENTS - FREE TEXT/NARRATIVE: Patient is a 49-year-old female with numerous medication allergies presenting with a chief complaint of cough, sore throat, fevers, vomiting, myalgias. Duration of symptoms has been about 3 days now. Patient states symptoms are progressively worsened. Patient denies any difficulty breathing, shortness of breath, recent travel, chest pain. Patient has not taken any medication for the symptoms. Patient states she feels just extremely nauseous. Not had any associated abdominal pain with this. Patient has no diarrhea. Pmhx: See chart Pshx: None Family Hx: noncontributory Smoking history? no Etoh use? none Drug use? none In addition to that documented in the HPI above, the additional ROS was obtained : Constitutional: As noted in HPI Eyes: Denies vision changes ENMT: Per HPI CV: Denies chest pain Resp: Denies SOB GI: Denies vomiting or diarrhea : Denies painful urination MSK: Denies recent trauma Skin: Denies new rashes Neuro: Denies new numbness or tingling or weakness Endocrine: Denies unexpected weight loss Heme: Denies bleeding disorders I have reviewed the triage vital signs Const: Well nourished, well developed, appears stated age. Nonanxious and nontoxic Eyes: PERRL, no conjunctival injection HENT: NCAT, Neck supple without meningismus CV: RRR, Warm, well-perfused extremities RESP: CTAB, Unlabored respiratory effort GI: soft, non-tender, non-distended, no masses MSK: No gross deformities appreciated Skin: Warm, dry. 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 Sensation and motor function of extremities grossly intact. Psych: Appropriate mood and affect Assessment and plan: Patient is a 49-year-old female with influenza. Patient has no laboratory abnormalities. Patient is nontoxic in appearance and not in any respiratory distress. Patient given IV fluids and antiemetics. Patient tolerated Zofran without any sort of allergic reaction after monitoring. Patient discharged home with supportive care and return precautions. All questions addressed and answered. Patient agrees with plan. epigastric Pain Score (Numeric/FACES): 9 - Related Data Allergies Allergy/AdvReac Type Severity Reaction Status Date / Time azithromycin Allergy Vomiting Verified 11/12/19 09:13 haloperidol Allergy Anaphylactic Verified 11/12/19 09:13 Shock ketorolac [From Toradol] Allergy Hives Verified 11/12/19 09:41 meperidine [From Demerol] Allergy headaches Verified 11/12/19 09:13 metoclopramide [From Reglan] Allergy Anaphylactic Verified 11/12/19 09:13 Shock NSAIDS (Non-Steroidal Allergy Stomach Verified 11/12/19 09:13 Anti-Inflamma Upset ondansetron [From Zofran] Allergy Hives Verified 11/12/19 09:13 phenazopyridine Allergy Vomiting Verified 11/12/19 09:13 [From Pyridium] prochlorperazine Allergy Anaphylactic Verified 11/12/19 09:13 [From Compazine] Shock propoxyphene Allergy Swelling Verified 11/12/19 09:13 [From Darvocet-N] tramadol Allergy Swelling Verified 11/12/19 09:41 Home Meds: Home Meds Multivitamin [Multi-Day Vitamins] 1 tab PO DAILY 08/22/19 [History] Omeprazole 20 mg PO DAILY 08/22/19 [History] ClonazePAM [KlonoPIN] 0.5 mg PO BID 11/09/19 [History] Promethazine [Phenergan] 25 mg PO ASDIRECTED 11/09/19 [History] Ondansetron [Zofran ODT] 4 mg PO Q6H PRN #16 tab.dis 11/12/19 [Rx] diphenhydrAMINE [Benadryl] 25 mg PO Q6H #20 cap 11/12/19 [Rx] Past Medical History HEENT History: Reports: Impaired Vision Cardiovascular History: Reports: None Respiratory History: Reports: Other (See Below) 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 Gastrointestinal History: Reports: Pancreatitis Genitourinary History: Reports: None SUPERVISOR OPENING AND PICKING History: Reports: Other (See Below) Other SUPERVISOR OPENING AND PICKING History: Pt states, "I had my tubes tied and then had them untied" Musculoskeletal History: Reports: None Neurological History: Reports: Concussion, TIA Psychiatric History: Reports: Anxiety, Depression Endocrine/Metabolic History: Reports: None Hematologic History: Reports: None Immunologic History: Reports: None Oncologic (Cancer) History: Reports: None Dermatologic History: Reports: None - Infectious Disease History Infectious Disease History: Reports: Chicken Pox - Past Surgical History Head Surgeries/Procedures: Reports: None HEENT Surgical History: Reports: None Cardiovascular Surgical History: Reports: None Respiratory Surgical History: Reports: None GI Surgical History: Reports: Appendectomy, Cholecystectomy Female Surgical History: Reports: Hysterectomy Endocrine Surgical History: Reports: None Neurological Surgical History: Reports: None Musculoskeletal Surgical History: Reports: Other (See Below) Other Musculoskeletal Surgeries/Procedures:: Back surgery for herniated discs Oncologic Surgical History: Reports: None Dermatological Surgical History: Reports: None Social & Family History - Family History Family Medical History: Noncontributory - Tobacco Use Smoking Status *Q: Current Every Day Smoker Years of Tobacco use: 35 Packs/Tins Daily: 0.5 - Caffeine Use Caffeine Use: Reports: Coffee, Soda - Recreational Drug Use Recreational Drug Use: No ED ROS GENERAL - Review of Systems Review Of Systems: See Below ED EXAM, GENERAL - Physical Exam Exam: See Below Course - Vital Signs Last Recorded V/S: Last Vital Signs Temp 36.6 C 11/12/19 09:10 Pulse 72 11/12/19 13:00 Resp 18 11/12/19 13:00 BP 120/82 11/12/19 13:00 Pulse Ox 97 11/12/19 13:00 - Orders/Labs/Meds Labs: Laboratory Tests 11/12/19 11/12/19 11/12/19 Range/Units 10:01 10:01 10:37 WBC 2.54 L (4.0-11.0) K/uL RBC 4.28 L (4.30-5.90) M/uL Hgb 13.0 (12.0-16.0) g/dL Hct 39.3 (36.0-46.0) % MCV 91.8 (80.0-98.0) fL MCH 30.4 (27.0-32.0) pg MCHC 33.1 (31.0-37.0) g/dL RDW Std Deviation 46.0 (28.0-62.0) fl RDW Coeff of Brenda 14 (11.0-15.0) % Plt Count 209 (150-400) K/uL MPV 9.30 (7.40-12.00) fL Neut % (Auto) 57.1 (48.0-80.0) % Lymph % (Auto) 30.3 (16.0-40.0) % [place] % (Auto) 12.2 (0.0-15.0) % Eos % (Auto) 0.4 (0.0-7.0) % Baso % (Auto) 0.0 (0.0-1.5) % Neut # (Auto) 1.5 (1.4-5.7) K/uL Lymph # (Auto) 0.8 (0.6-2.4) K/uL [place] # (Auto) 0.3 (0.0-0.8) K/uL Eos # (Auto) 0.0 (0.0-0.7) K/uL Baso # (Auto) 0.0 (0.0-0.1) K/uL Nucleated RBC % 0.0 /100WBC Nucleated RBCs # 0 K/uL Lactate 0.6 (0.20-2.00) mmol/L Sodium 141 (136-145) mmol/L Potassium 3.7 (3.5-5.1) mmol/L Chloride 104 (98-107) mmol/L Carbon Dioxide 24.3 (21.0-32.0) mmol/L BUN 17 (7.0-18.0) mg/dL Creatinine 0.8 (0.6-1.0) mg/dL Est Cr Clr Drug Dosing 90.85 mL/min Estimated GFR (MDRD) > 60.0 ml/min Glucose 93 (74-106) mg/dL Calcium 8.9 (8.5-10.1) mg/dL Total Bilirubin 0.3 (0.2-1.0) mg/dL AST 28 (15-37) IU/L ALT 27 (14-63) IU/L Alkaline Phosphatase 90 (46-116) U/L Total Protein 7.4 (6.4-8.2) g/dL Albumin 3.4 (3.4-5.0) g/dL Globulin 4.0 (2.6-4.0) g/dL Albumin/Globulin Ratio 0.9 (0.9-1.6) Lipase 272 (73-393) U/L Urine HCG, Qual (NEGATIVE) 02/21/20 Range/Units 11:00 WBC (4.0-11.0) K/uL RBC (4.30-5.90) M/uL Hgb (12.0-16.0) g/dL Hct (36.0-46.0) % MCV (80.0-98.0) fL MCH (27.0-32.0) pg MCHC (31.0-37.0) g/dL RDW Std Deviation (28.0-62.0) fl RDW Coeff of Brenda (11.0-15.0) % Plt Count (150-400) K/uL MPV (7.40-12.00) fL Neut % (Auto) (48.0-80.0) % Lymph % (Auto) (16.0-40.0) % [place] % (Auto) (0.0-15.0) % Eos % (Auto) (0.0-7.0) % Baso % (Auto) (0.0-1.5) % Neut # (Auto) (1.4-5.7) K/uL Lymph # (Auto) (0.6-2.4) K/uL [place] # (Auto) (0.0-0.8) K/uL Eos # (Auto) (0.0-0.7) K/uL Baso # (Auto) (0.0-0.1) K/uL Nucleated RBC % /100WBC Nucleated RBCs # K/uL Lactate (0.20-2.00) mmol/L Sodium (136-145) mmol/L Potassium (3.5-5.1) mmol/L Chloride (98-107) mmol/L Carbon Dioxide (21.0-32.0) mmol/L BUN (7.0-18.0) mg/dL Creatinine (0.6-1.0) mg/dL Est Cr Clr Drug Dosing mL/min Estimated GFR (MDRD) ml/min Glucose (74-106) mg/dL Calcium (8.5-10.1) mg/dL Total Bilirubin (0.2-1.0) mg/dL AST (15-37) IU/L ALT (14-63) IU/L Alkaline Phosphatase (46-116) U/L Total Protein (6.4-8.2) g/dL Albumin (3.4-5.0) g/dL Globulin (2.6-4.0) g/dL Albumin/Globulin Ratio (0.9-1.6) Lipase (73-393) U/L Urine HCG, Qual NEGATIVE (NEGATIVE) Meds: Medications Discontinued Medications Generic Name Dose Route Start Last Admin Trade Name Freq PRN Reason Stop Dose Admin Acetaminophen 650 mg 11/12/19 09:27 11/12/19 10:08 Tylenol PO 11/12/19 09:28 Not Given NOW ONE Diphenhydramine HCl 25 mg 11/12/19 09:29 11/12/19 09:42 Benadryl IVPUSH 11/12/19 09:30 25 mg ONETIME ONE Administration Sodium Chloride 1,000 mls @ 999 mls/hr 11/12/19 09:27 11/12/19 09:42 Normal Saline IV 11/12/19 10:27 999 mls/hr .Bolus ONE Administration Sodium Chloride 1,000 mls @ 999 mls/hr 11/12/19 10:34 11/12/19 11:41 Normal Saline IV 11/12/19 11:34 999 mls/hr .Bolus ONE Administration Ondansetron HCl 4 mg 11/12/19 11:43 11/12/19 11:58 Zofran IVPUSH 11/12/19 11:44 4 mg ONETIME ONE Administration Pyridoxine HCl 50 mg 11/13/19 10:40 11/12/19 11:24 Vitamin B6-Pyridoxine PO 11/13/19 10:41 50 mg ONETIME ONE Administration Departure - Departure Time of Disposition: 13:15 Disposition: Home, Self-Care 01 Clinical Impression: Influenza - Discharge Information Prescriptions: diphenhydrAMINE [Benadryl] 25 mg PO Q6H #20 cap Ondansetron [Zofran ODT] 4 mg PO Q6H PRN #16 tab.dis PRN Reason: Nausea/Vomiting Instructions: Influenza, Adult, [id number] Referrals: Shyam Deleon MD [Primary Care Provider] - Forms: ED Department Discharge Additional Instructions: The following information is given to patients seen in the emergency department who are being discharged to home. This information is to outline your options for follow-up care. We provide all patients seen in our emergency department with a follow-up referral. The need for follow-up, as well as the timing and circumstances, are variable depending upon the specifics of your emergency department visit. If you don't have a primary care physician on staff, we will provide you with a referral. We always advise you to contact your personal physician following an emergency department visit to inform them of the circumstance of the visit and for follow-up with them and/or the need for any referrals to a consulting specialist. The emergency department will also refer you to a specialist when appropriate. This referral assures that you have the opportunity for follow-up care with a specialist. All of these measure are taken in an effort to provide you with optimal care, which includes your follow-up. Under all circumstances we always encourage you to contact your private physician who remains a resource for coordinating your care. When calling for follow-up care, please make the office aware that this follow-up is from your recent emergency room visit. If for any reason you are refused follow-up, please contact the [facility] Emergency Department at and asked to speak to the emergency department charge nurse. Sepsis Event Note - Evaluation Sepsis Screening Result: No Definite Risk - Focused Exam Vital Signs: Vital Signs Temp Pulse Resp BP Pulse Ox 11/12/19 13:00 72 18 120/82 97 11/12/19 12:00 71 117/70 97 11/12/19 11:00 69 18 121/74 97 11/12/19 10:30 75 17 118/77 98 11/12/19 10:00 74 18 120/73 97 11/12/19 09:30 85 18 124/75 98 11/12/19 09:10 36.6 C 116 H 18 141/75 H 97 Date Exam was Performed: 11/12/19 Time Exam was Performed: 17:40
[2019-11-13] MEDS ORDERED: Vitamin B6-pyridOXINE 50 MG Tab PO ONE (10:40)
== END 2019-11-12 13:26 | disposition home or self-care (01) ==
LOC: MW.ED 08:51
DX: J11.1 Influenza due to unidentified influenza virus with other respiratory manifestations (principal); F17.210 Nicotine dependence, cigarettes, uncomplicated; Z88.8 Allergy status to other drugs, medicaments and biological substances; Z88.6 Allergy status to analgesic agent; Z88.1 Allergy status to other antibiotic agents
CPT/HCPCS: 36415; 71046; 80053; 81025; 83605; 83690; 85025; 87804; 96361; 96374; 96375; 99284; A9270; J1200; J2405; J7030; 99282

== ENCOUNTER 2019-11-29 16:59 | Emergency (ER) | payer MEDICAID ==
[2019-11-29] MEDS ORDERED: Sodium Chloride 0.9% 1,000 ML IV ONE (18:29)
--- NOTE | 2019-11-29 18:37 | EDM.PDOC ---
ED HPI GENERAL MEDICAL PROBLEM - General Chief Complaint: Respiratory Problem Stated Complaint: FLU SYMPTOMS Time Seen by Provider: 11/29/19 18:23 Source of Information: Reports: Patient History Limitations: Reports: No Limitations - History of Present Illness INITIAL COMMENTS - FREE TEXT/NARRATIVE: HISTORY AND PHYSICAL: History of present illness: Patient is a 49-year-old female who presents to the ED today with concern of nausea, vomiting, abdominal pain, and diarrhea over the past 2 weeks. Patient states she was diagnosed with influenza 2 weeks ago but at that time was having a cough. Patient states her cough is improved and she is no longer having this symptom. Patient states at that time she is also having vomiting, diarrhea, and abdominal pain but states that the symptoms have worsened over the course of the past 2 weeks. Patient states she was seen by her primary care provider on Friday who gave her Tamiflu, and cefdinir. Patient states he diagnosed her with an ear infection although she was not having ear pain and strep but states that he did not swab for strep and just looked at her throat. Patient states that over the course of the weekend her abdominal pain and vomiting has worsened despite taking the medication. Patient states she does have a history of pancreatitis in the past and this is why they took her gallbladder out. Patient states her abdominal pain does feel similar to past pancreatitis infection. Patient states she has a history of cholecystectomy, total hysterectomy, and appendectomy. Patient denies any other health history. Patient states she is not having a sore throat. Patient denies fever, chills, chest pain, shortness of breath, or cough. Denies headache, neck stiff ness, change in vision, syncope, or near syncope. Denies constipation, or dysuria. Has not noted any blood in urine or stool. Review of systems: As per history of present illness and below otherwise all systems reviewed and negative. Past medical history: As per history of present illness and as reviewed below otherwise noncontributory. Surgical history: As per history of present illness and as reviewed below otherwise noncontributory. Social history: See social history for further information Family history: As per history of present illness and as reviewed below otherwise noncontributory. Physical exam: General: Patient is alert, oriented, and in no acute distress. Patient sitting comfortably on exam table. HEENT: Atraumatic, normocephalic, pupils equal and reactive bilaterally, negative for conjunctival pallor or scleral icterus, mucous membranes moist, TMs normal bilaterally, throat clear, neck supple, nontender, trachea midline. No drooling or trismus noted. No meningeal signs. No hot potato voice noted. Lungs: Clear to auscultation, breath sounds equal bilaterally, chest nontender. Heart: S1S2, regular rate and rhythm without overt murmur Abdomen: Soft, nondistended, moderate tenderness of the epigastric area without guarding. Negative for masses or hepatosplenomegaly. Negative for costovertebral tenderness. Pelvis: Stable nontender. Genitourinary: Deferred. Rectal: Deferred. Skin: Intact, warm, dry. No lesions or rashes noted. Extremities: Atraumatic, negative for cords or calf pain. Neurovascular unremarkable. Neuro: Awake, alert, oriented. Cranial nerves II through XII unremarkable. Cerebellum unremarkable. Motor and sensory unremarkable throughout. Exam nonfocal. Notes: Patient was unable to leave a stool sample today in the ED. Stool collection supplies have been provided to her to return to our lab when she is able to leave a sample at home. Patient able to tolerate p.o. intake in the ED today without any episodes of vomiting here in the ED. Discussed importance for follow-up with primary care provider. Voices understanding and is agreeable to plan of care. Denies any further questions or concerns at this time. Diagnostics: CBC, CMP, UA, EKG, stool study, ova and parasite, C. difficile, lipase, amylase Therapeutics: NS, Phenergan (has taken this safely at home) Prescription: None Impression: Upper abdominal pain Vomiting Nausea Plan: 1. Encourage small but frequent sips of fluid to prevent dehydration. Stool collection supplies have been provided to you. Once you are able to leave a sample, return this to our lab. 2. You can use Tylenol as directed for pain and discomfort. 3. Follow-up with a primary care provider as discussed. Return to the ED as needed and as discussed. Definitive disposition and diagnosis as appropriate pending reevaluation and review of above. bodyaches Pain Score (Numeric/FACES): 9 - Related Data Allergies Allergy/AdvReac Type Severity Reaction Status Date / Time azithromycin Allergy Vomiting Verified 11/29/19 17:34 haloperidol Allergy Anaphylactic Verified 11/29/19 17:34 Shock ketorolac [From Toradol] Allergy Hives Verified 11/29/19 17:34 meperidine [From Demerol] Allergy headaches Verified 11/29/19 17:34 metoclopramide [From Reglan] Allergy Anaphylactic Verified 11/29/19 17:34 Shock NSAIDS (Non-Steroidal Allergy Stomach Verified 11/29/19 17:34 Anti-Inflamma Upset ondansetron [From Zofran] Allergy Hives Verified 11/29/19 17:34 phenazopyridine Allergy Vomiting Verified 11/29/19 17:34 [From Pyridium] prochlorperazine Allergy Anaphylactic Verified 11/29/19 17:34 [From Compazine] Shock propoxyphene Allergy Swelling Verified 11/29/19 17:34 [From Darvocet-N] tramadol Allergy Swelling Verified 11/29/19 17:34 Home Meds: Home Meds Multivitamin [Multi-Day Vitamins] 1 tab PO DAILY 08/22/19 [History] Omeprazole 20 mg PO DAILY 08/22/19 [History] ClonazePAM [KlonoPIN] 0.5 mg PO BID 11/09/19 [History] Promethazine [Phenergan] 25 mg PO ASDIRECTED 11/09/19 [History] Ondansetron [Zofran ODT] 4 mg PO Q6H PRN #16 tab.dis 11/12/19 [Rx] diphenhydrAMINE [Benadryl] 25 mg PO Q6H #20 cap 11/12/19 [Rx] Cefdinir 300 mg PO BID 11/29/19 [History] Oseltamivir [Tamiflu] 1 cap PO DAILY 11/29/19 [History] Past Medical History HEENT History: Reports: Impaired Vision Cardiovascular History: Reports: None Respiratory History: Reports: Other (See Below) 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 Gastrointestinal History: Reports: Pancreatitis Genitourinary History: Reports: None 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 (See Below) Other CONTRACTS ANALYST History: Pt states, "I had my tubes tied and then had them untied" Musculoskeletal History: Reports: None Neurological History: Reports: Concussion, TIA Psychiatric History: Reports: Anxiety, Depression Endocrine/Metabolic History: Reports: None Hematologic History: Reports: None Immunologic History: Reports: None Oncologic (Cancer) History: Reports: None Dermatologic History: Reports: None - Infectious Disease History Infectious Disease History: Reports: None - Past Surgical History Head Surgeries/Procedures: Reports: None HEENT Surgical History: Reports: None Cardiovascular Surgical History: Reports: None Respiratory Surgical History: Reports: None GI Surgical History: Reports: Appendectomy, Cholecystectomy Female Surgical History: Reports: Hysterectomy Endocrine Surgical History: Reports: None Neurological Surgical History: Reports: None Musculoskeletal Surgical History: Reports: Other (See Below) Other Musculoskeletal Surgeries/Procedures:: Back surgery for herniated discs Oncologic Surgical History: Reports: None Dermatological Surgical History: Reports: None Social & Family History - Family History Family Medical History: Noncontributory - Tobacco Use Smoking Status *Q: Current Every Day Smoker Years of Tobacco use: 33 Packs/Tins Daily: 0.1 - Caffeine Use Caffeine Use: Reports: None - Recreational Drug Use Recreational Drug Use: No ED ROS GENERAL - Review of Systems Review Of Systems: Comprehensive ROS is negative, except as noted in HPI. ED EXAM, GENERAL - Physical Exam Exam: See Below (see dictation) Course - Vital Signs Last Recorded V/S: Last Vital Signs Temp 97.0 F 11/29/19 21:03 Pulse 77 11/29/19 21:03 Resp 16 11/29/19 21:03 BP 121/56 L 11/29/19 21:03 Pulse Ox 100 11/29/19 21:03 - Orders/Labs/Meds Orders: Active Orders 24 hr Category Date Time Status EKG Documentation Completion [RC] STAT Care 11/29/19 18:31 Active C DIFFICILE AG/TOXIN W/REFLEX [RM] Stat Lab 11/29/19 18:30 Ordered OVA & PARASITES BY IMMUNOASSAY [MREF] Stat Lab 11/29/19 18:30 Ordered STOOL CULTURE/SHIGA TOXIN [MREF] Stat Lab 11/29/19 18:30 Ordered Labs: Laboratory Tests 11/29/19 11/29/19 11/29/19 Range/Units 18:55 19:31 21:07 WBC 6.64 (4.0-11.0) K/uL RBC 4.34 (4.30-5.90) M/uL Hgb 13.2 (12.0-16.0) g/dL Hct 40.2 (36.0-46.0) % MCV 92.6 (80.0-98.0) fL MCH 30.4 (27.0-32.0) pg MCHC 32.8 (31.0-37.0) g/dL RDW Std Deviation 47.6 (28.0-62.0) fl RDW Coeff of Brenda 14 (11.0-15.0) % Plt Count 368 (150-400) K/uL MPV 9.50 (7.40-12.00) fL Neut % (Auto) 63.7 (48.0-80.0) % Lymph % (Auto) 28.5 (16.0-40.0) % Towns % (Auto) 7.1 (0.0-15.0) % Eos % (Auto) 0.5 (0.0-7.0) % Baso % (Auto) 0.2 (0.0-1.5) % Neut # (Auto) 4.2 (1.4-5.7) K/uL Lymph # (Auto) 1.9 (0.6-2.4) K/uL Towns # (Auto) 0.5 (0.0-0.8) K/uL Eos # (Auto) 0.0 (0.0-0.7) K/uL Baso # (Auto) 0.0 (0.0-0.1) K/uL Nucleated RBC % 0.0 /100WBC Nucleated RBCs # 0 K/uL Sodium 142 (136-145) mmol/L Potassium 4.4 (3.5-5.1) mmol/L Chloride 107 (98-107) mmol/L Carbon Dioxide 26.4 (21.0-32.0) mmol/L BUN 21 H (7.0-18.0) mg/dL Creatinine 0.6 (0.6-1.0) mg/dL Est Cr Clr Drug Dosing 121.14 mL/min Estimated GFR (MDRD) > 60.0 ml/min Glucose 99 (74-106) mg/dL Calcium 8.7 (8.5-10.1) mg/dL Total Bilirubin 0.3 (0.2-1.0) mg/dL AST 26 (15-37) IU/L ALT 51 (14-63) IU/L Alkaline Phosphatase 155 H (46-116) U/L Total Protein 6.6 (6.4-8.2) g/dL Albumin 3.5 (3.4-5.0) g/dL Globulin 3.1 (2.6-4.0) g/dL Albumin/Globulin Ratio 1.1 (0.9-1.6) Amylase 58 (25-115) U/L Lipase 337 (73-393) U/L Urine Color YELLOW Urine Appearance CLEAR Urine pH 7.0 (5.0-8.0) Ur Specific [place] 1.015 (1.001-1.035) Urine Protein NEGATIVE (NEGATIVE) mg/dL Urine Glucose (UA) NEGATIVE (NEGATIVE) mg/dL Urine Ketones NEGATIVE (NEGATIVE) mg/dL Urine Occult Blood NEGATIVE (NEGATIVE) Urine Nitrite NEGATIVE (NEGATIVE) Urine Bilirubin NEGATIVE (NEGATIVE) Urine Urobilinogen 0.2 (<2.0) EU/dL Ur Leukocyte Esterase NEGATIVE (NEGATIVE) Meds: Medications Discontinued Medications Generic Name Dose Route Start Last Admin Trade Name Freq PRN Reason Stop Dose Admin Sodium Chloride 1,000 mls @ 999 mls/hr 11/29/19 18:29 11/29/19 19:11 Normal Saline IV 11/29/19 19:29 999 mls/hr BOLUS ONE Administration Iopamidol 100 ml 11/29/19 20:33 11/29/19 20:41 Isovue Multipack-370 (76%) IVPUSH 11/29/19 20:34 100 ml ONETIME STA Administration Promethazine HCl 25 mg 11/29/19 19:56 11/29/19 20:10 Phenergan PO 11/29/19 19:57 Not Given NOW STA Promethazine HCl 25 mg 11/29/19 20:09 11/29/19 20:17 Phenergan IM 11/29/19 20:10 25 mg ONETIME ONE Administration Departure - Departure Time of Disposition: 21:18 Disposition: Home, Self-Care 01 Clinical Impression: Nausea Abdominal pain Qualifiers: Abdominal location: upper abdomen, unspecified Qualified Code(s): R10.10 - Upper abdominal pain, unspecified Vomiting Qualifiers: Vomiting type: unspecified Vomiting Intractability: non-intractable Nausea presence: with nausea Qualified Code(s): R11.2 - Nausea with vomiting, unspecified - Discharge Information Instructions: Nausea and Vomiting, Adult, [id number], Abdominal Pain, Adult, [id number] Referrals: Shyam Deleon MD [Primary Care Provider] - Forms: ED Department Discharge Additional Instructions: The following information is given to patients seen in the emergency department who are being discharged to home. This information is to outline your options for follow-up care. We provide all patients seen in our emergency department with a follow-up referral. The need for follow-up, as well as the timing and circumstances, are variable depending upon the specifics of your emergency department visit. If you don't have a primary care physician on staff, we will provide you with a referral. We always advise you to contact your personal physician following an emergency department visit to inform them of the circumstance of the visit and for follow-up with them and/or the need for any referrals to a consulting specialist. The emergency department will also refer you to a specialist when appropriate. This referral assures that you have the opportunity for follow-up care with a specialist. All of these measure are taken in an effort to provide you with optimal care, which includes your follow-up. Under all circumstances we always encourage you to contact your private physician who remains a resource for coordinating your care. When calling for follow-up care, please make the office aware that this follow-up is from your recent emergency room visit. If for any reason you are refused follow-up, please contact the [facility] Emergency Department at and asked to speak to the emergency department charge nurse. [facility] [address] [place] [id number] [place] [address] 1. Encourage small but frequent sips of fluid to prevent dehydration. Stool collection supplies have been provided to you. Once you are able to leave a sample, return this to our lab. 2. You can use Tylenol as directed for pain and discomfort. 3. Follow-up with a primary care provider as discussed. Return to the ED as needed and as discussed. Sepsis Event Note - Evaluation Sepsis Screening Result: No Definite Risk - Focused Exam Vital Signs: Vital Signs Temp Pulse Resp BP Pulse Ox 11/29/19 21:03 97.0 F 77 16 121/56 L 100 11/29/19 17:31 97.4 F 100 18 125/73 97 Date Exam was Performed: 11/29/19 Time Exam was Performed: 22:27 - My Orders Last 24 Hours: My Active Orders 11/29/19 18:30 C DIFFICILE AG/TOXIN W/REFLEX [RM] Stat OVA & PARASITES BY IMMUNOASSAY [MREF] Stat STOOL CULTURE/SHIGA TOXIN [MREF] Stat 11/29/19 18:31 EKG Documentation Completion [RC] STAT - Assessment/Plan Last 24 Hours: My Active Orders 11/29/19 18:30 C DIFFICILE AG/TOXIN W/REFLEX [RM] Stat OVA & PARASITES BY IMMUNOASSAY [MREF] Stat STOOL CULTURE/SHIGA TOXIN [MREF] Stat 11/29/19 18:31 EKG Documentation Completion [RC] STAT
[2019-11-29] MEDS ORDERED: Promethazine 25 MG Tab PO STA (19:56)
[2019-11-29 20:02] LABS: BLOOD UREA NITROGEN,BUN 21 mg/dL (7.0-18.0); CARBON DIOXIDE,CO2 26.4 mmol/L (21.0-32.0); CHLORIDE,CL 107 mmol/L (98-107); GLUCOSE RANDOM 99 mg/dL (74-106); LIPASE 337 U/L (73-393); POTASSIUM,K 4.4 mmol/L (3.5-5.1); SODIUM,NA 142 mmol/L (136-145)
[2019-11-29] MEDS ORDERED: Promethazine 25 MG/ML SDV IM ONE (20:09)
[2019-11-29] MEDS ORDERED: Iopamidol 755 MG/ML 200 ML Multipack Bottle IVPUSH STA (20:33)
--- NOTE | 2019-11-29 21:09 | CT ---
CT abdomen and pelvis Technique: Multiple axial sections were obtained from above the dome of the diaphragm inferiorly through the pubic symphysis. Intravenous contrast was utilized. No oral contrast has been given. Comparison: Prior CT abdomen and pelvis study of 08/22/19. Findings: Visualized lung bases show nothing acute. Liver contains no focal parenchymal abnormality. Spleen appears within normal limits. Adrenal glands show no nodule. Pancreas is within normal limits. Kidneys show symmetric contrast enhancement without hydronephrosis or mass. Aorta shows no aneurysm. Surgical clips are seen from prior cholecystectomy. No retroperitoneal adenopathy or mesenteric abnormalities are seen. Surgical material is seen along the tip of the cecum. Appendix not visualized and findings presumably represent previous appendectomy. No pelvic mass or adenopathy is seen. No free fluid is seen. Uterus not visualized presumably from prior hysterectomy. No inflammatory change is appreciated. No bowel dilatation is identified. Artifact is noted from previous lumbar spine surgery at L3-S1. Impression: 1. Findings believed to be incidental as described above. 2. Nothing acute is appreciated on CT study of the abdomen and pelvis. Diagnostic code #2 This report was dictated in [place] Standard Time
== END 2019-11-29 21:56 | disposition home or self-care (01) ==
LOC: MW.ED 16:59
DX: R10.10 Upper abdominal pain, unspecified (principal); R11.2 Nausea with vomiting, unspecified; F41.9 Anxiety disorder, unspecified; F32.9 Major depressive disorder, single episode, unspecified; F17.210 Nicotine dependence, cigarettes, uncomplicated; Z88.1 Allergy status to other antibiotic agents; Z88.8 Allergy status to other drugs, medicaments and biological substances; Z88.6 Allergy status to analgesic agent; Z79.899 Other long term (current) drug therapy; Z86.73 Personal history of transient ischemic attack (TIA), and cerebral infarction without residual deficits
CPT/HCPCS: 36415; 74177; 80053; 81003; 82150; 83690; 85025; 93005; 96360; 96372; 99284; J2550; J7030; Q9967

== ENCOUNTER 2020-01-06 16:19 | Emergency (ER) | payer MEDICAID ==
--- NOTE | 2020-01-06 16:54 | EDM.PDOC ---
ED HPI GENERAL MEDICAL PROBLEM - General Chief Complaint: Lower Extremity Injury/Pain Stated Complaint: POSSIBLE RIGHT FOOT INJURY & BACK INJURY Time Seen by Provider: 01/06/20 16:52 Source of Information: Reports: Patient History Limitations: Reports: No Limitations - History of Present Illness INITIAL COMMENTS - FREE TEXT/NARRATIVE: Patient is 49-year-old female with past medical history of lumbar fusion complaining of right ankle pain and low back pain status post trip and fall just prior to arrival. Patient states she twisted her right ankle and fell on her buttocks. Patient denies any head trauma or loss of consciousness. Patient states the pain is very severe in her right foot and extremely painful when she tries to move it. Patient did not take any medication prior to arrival. Patient denies any associated numbness or tingling. Pmhx: None Pshx: None Family Hx: noncontributory Smoking history? no Etoh use? none Drug use? none Comprehensive review of systems performed otherwise negative as per HPI I have reviewed the triage vital signs Const: Well nourished, well developed, appears stated age Eyes: PERRL, no conjunctival injection HENT: NCAT, Neck supple without meningismus CV: RRR, Warm, well-perfused extremities RESP: CTAB, Unlabored respiratory effort GI: soft, non-tender, non-distended, no masses MSK: No deformities noted. Patient is tender to palpation over the lateral malleolus, base of the fifth metatarsal Back: No midline tenderness palpation Skin: Warm, dry. No rashes Neuro: Alert, garment alteration examiner II-XII grossly intact. Sensation and motor function of extremities grossly intact. Psych: Appropriate mood and affect Assessment and plan: Patient is a 49-year-old female status post mechanical fall presenting with right foot and ankle pain. Patient had unremarkable ER course. Pain medication was offered the patient but refused given that she states she is unable to take any sort of NSAIDs or Tylenol. The x-rays did not show any acute fracture and therefore likely cause of pain is secondary to a ankle sprain. Patient given Dale wrap and crutches and educated on sprain management. No narcotic medications will be given for ankle sprain. Patient educated and instructed to use elevation, ice to help with pain and swelling. Right Ankle Pain Score (Numeric/FACES): 8 - Related Data Allergies Allergy/AdvReac Type Severity Reaction Status Date / Time acetaminophen Allergy Swelling Verified 01/06/20 16:48 [From Darvocet-N] azithromycin Allergy Vomiting Verified 01/06/20 16:48 haloperidol Allergy Anaphylactic Verified 01/06/20 16:48 Shock ketorolac [From Toradol] Allergy Hives Verified 01/06/20 16:48 meperidine [From Demerol] Allergy headaches Verified 01/06/20 16:48 metoclopramide [From Reglan] Allergy Anaphylactic Verified 01/06/20 16:48 Shock NSAIDS (Non-Steroidal Allergy Stomach Verified 01/06/20 16:48 Anti-Inflamma Upset ondansetron [From Zofran] Allergy Hives Verified 01/06/20 16:48 phenazopyridine Allergy Vomiting Verified 01/06/20 16:48 [From Pyridium] prochlorperazine Allergy Anaphylactic Verified 01/06/20 16:48 [From Compazine] Shock propoxyphene Allergy Swelling Verified 01/06/20 16:48 [From Darvocet-N] tramadol Allergy Swelling Verified 11/29/19 17:34 Home Meds: Home Meds Multivitamin [Multi-Day Vitamins] 1 tab PO DAILY 08/22/19 [History] Omeprazole 20 mg PO DAILY 08/22/19 [History] ClonazePAM [KlonoPIN] 0.5 mg PO BID 11/09/19 [History] Promethazine [Phenergan] 25 mg PO ASDIRECTED 11/09/19 [History] Ondansetron [Zofran ODT] 4 mg PO Q6H PRN #16 tab.dis 11/12/19 [Rx] diphenhydrAMINE [Benadryl] 25 mg PO Q6H #20 cap 11/12/19 [Rx] Cefdinir 300 mg PO BID 11/29/19 [History] Oseltamivir [Tamiflu] 1 cap PO DAILY 11/29/19 [History] Past Medical History HEENT History: Reports: Impaired Vision Cardiovascular History: Reports: None Respiratory History: Reports: Other (See Below) 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 Gastrointestinal History: Reports: Pancreatitis Genitourinary History: Reports: None 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 (See Below) Other CORE CUTTER AND REAMER History: Pt states, "I had my tubes tied and then had them untied" Musculoskeletal History: Reports: None Neurological History: Reports: Concussion, TIA Psychiatric History: Reports: Anxiety, Depression Endocrine/Metabolic History: Reports: None Hematologic History: Reports: None Immunologic History: Reports: None Oncologic (Cancer) History: Reports: None Dermatologic History: Reports: None - Infectious Disease History Infectious Disease History: Reports: None - Past Surgical History Head Surgeries/Procedures: Reports: None HEENT Surgical History: Reports: None Cardiovascular Surgical History: Reports: None Respiratory Surgical History: Reports: None GI Surgical History: Reports: Appendectomy, Cholecystectomy Female Surgical History: Reports: Hysterectomy Endocrine Surgical History: Reports: None Neurological Surgical History: Reports: None Musculoskeletal Surgical History: Reports: Other (See Below) Other Musculoskeletal Surgeries/Procedures:: Back surgery for herniated discs Oncologic Surgical History: Reports: None Dermatological Surgical History: Reports: None Social & Family History - Family History Family Medical History: Noncontributory - Caffeine Use Caffeine Use: Reports: None Review of Systems - Review of Systems Review Of Systems: See Below ED EXAM, GENERAL - Physical Exam Exam: See Below Course - Vital Signs Last Recorded V/S: Last Vital Signs Temp 36.1 C 01/06/20 16:49 Pulse 93 01/06/20 17:57 Resp 18 01/06/20 17:57 BP 125/83 01/06/20 17:57 Pulse Ox 96 01/06/20 17:57 - Orders/Labs/Meds Meds: Medications Discontinued Medications Generic Name Dose Route Start Last Admin Trade Name Claudioq PRN Reason Stop Dose Admin Ketorolac Tromethamine 30 mg 01/06/20 16:51 01/06/20 17:09 Toradol IM 01/06/20 16:52 Not Given ONETIME ONE Departure - Departure Time of Disposition: 17:46 Disposition: Home, Self-Care 01 Clinical Impression: Sprain of ankle, right - Discharge Information Instructions: Ankle Sprain, [id number] Referrals: Shyam Deleon MD [Primary Care Provider] - Forms: ED Department Discharge Additional Instructions: The following information is given to patients seen in the emergency department who are being discharged to home. This information is to outline your options for follow-up care. We provide all patients seen in our emergency department with a follow-up referral. The need for follow-up, as well as the timing and circumstances, are variable depending upon the specifics of your emergency department visit. If you don't have a primary care physician on staff, we will provide you with a referral. We always advise you to contact your personal physician following an emergency department visit to inform them of the circumstance of the visit and for follow-up with them and/or the need for any referrals to a consulting specialist. The emergency department will also refer you to a specialist when appropriate. This referral assures that you have the opportunity for follow-up care with a specialist. All of these measure are taken in an effort to provide you with optimal care, which includes your follow-up. Under all circumstances we always encourage you to contact your private physician who remains a resource for coordinating your care. When calling for follow-up care, please make the office aware that this follow-up is from your recent emergency room visit. If for any reason you are refused follow-up, please contact the [facility] Emergency Department at and asked to speak to the emergency department charge nurse. Sepsis Event Note - Evaluation Sepsis Screening Result: No Definite Risk - Focused Exam Date Exam was Performed: 01/08/20 Time Exam was Performed: 19:25
[2020-01-06] MEDS: Ketorolac 30 MG/ML SDV IM ONE ×2 (17:06→17:09)
--- NOTE | 2020-01-06 17:40 | CR ---
Right ankle: 3 views of the right ankle were obtained. Comparison: No previous study. Ankle mortise is symmetric. No fracture, dislocation or other bony abnormality is identified. Impression: 1. No abnormality is identified on 3 view right ankle exam. Diagnostic code #1 Study was dictated in MDT
--- NOTE | 2020-01-06 17:40 | CR ---
Right foot: 3 views the right foot were obtained. Comparison: No prior foot exam. No fracture, dislocation or other bony abnormality is seen. Impression: 1. No abnormality is appreciated on right foot exam. Diagnostic code #1 Study was dictated in MDT
== END 2020-01-06 17:57 | disposition home or self-care (01) ==
LOC: MW.ED 16:19
DX: S93.401A Sprain of unspecified ligament of right ankle, initial encounter (principal); F41.9 Anxiety disorder, unspecified; F32.9 Major depressive disorder, single episode, unspecified; Z88.6 Allergy status to analgesic agent; Z88.1 Allergy status to other antibiotic agents; Z88.5 Allergy status to narcotic agent; Z88.8 Allergy status to other drugs, medicaments and biological substances; Z86.73 Personal history of transient ischemic attack (TIA), and cerebral infarction without residual deficits; W01.0XXA Fall on same level from slipping, tripping and stumbling without subsequent striking against object, initial encounter
CPT/HCPCS: 73610-26-RT; 73610-RT; 73630-26-RT; 73630-RT; 99283; 99283-25; J1885